=== PATIENT | male | born 1940 | race Caucasian/White ===

== ENCOUNTER 2018-03-22 15:42 | Inpatient (IN) | payer MEDICARE ==
[2018-03-22 15:42] VITALS: BMI 33.4
--- NOTE | 2018-03-22 17:14 | CT ---
PROCEDURE: CT HEAD WITHOUT CONTRAST. HISTORY: msc COMPARISON: None available. TECHNIQUE: Axial computed tomography images were obtained through the head/brain without intravenous contrast. Radiation dose: Total exam DLP = 765.8 mGy-cm. This CT exam was performed using one or more of the following dose reduction techniques: Automated exposure control, adjustment of the mA and/or kV according to patient size, and/or use of iterative reconstruction technique. FINDINGS: HEMORRHAGE: No intracranial hemorrhage. BRAIN: No mass effect or edema. Atrophy. Chronic microvascular ischemic changes. Bilateral basal ganglia lacunar infarctions. VENTRICLES: Unremarkable. No hydrocephalus. CALVARIUM: Unremarkable. PARANASAL SINUSES: Unremarkable as visualized. No significant inflammatory changes. MASTOID AIR CELLS: Unremarkable as visualized. No inflammatory changes. OTHER FINDINGS: None. IMPRESSION: No acute intracranial pathology.
[2018-03-22 17:21] LABS: BASO # 0.1 K/uL (0.0-0.2); EOS % 0.6 % (0.0-4.0); HEMOGLOBIN 16.9 g/dL (12.0-18.0); LYMPH # 1.6 K/uL (1.0-4.3); LYMPH % 19.7 % (20.0-40.0); MEAN CELL VOLUME 100.4 fL (80.0-94.0); MEAN CORPUSCULAR HEMOGLOBIN 33.6 pg (27.0-31.0); MEAN CORPUSCULAR HGB CONC 33.5 g/dL (33.0-37.0); MEAN PLATELET VOLUME 7.7 fL (7.2-11.7); MONO # 0.8 K/uL (0.0-0.8); MONO % 9.6 % (0.0-10.0); NEUT # 5.5 K/uL (1.8-7.0); NEUT % 69.1 % (50.0-75.0); NRBC % 0.1 % (0.0-2.0); RBC 5.02 Mil/uL (4.40-5.90); RED CELL DISTRIBUTION WIDTH 13.8 % (11.5-14.5)
[2018-03-22 17:40] LABS: ALB/GLOB RATIO 1.3 (1.0-2.1); ALBUMIN 4.7 g/dL (3.5-5.0); CALCIUM 9.4 mg/dl (8.6-10.4)
--- NOTE | 2018-03-22 17:44 | RAD ---
PROCEDURE: CHEST RADIOGRAPH, 1 VIEW HISTORY: SOB COMPARISON: Chest radiograph dated 03/01/2013. FINDINGS: LUNGS: Bibasilar atelectasis. PLEURA: No pneumothorax or pleural fluid seen. CARDIOVASCULAR: Atherosclerotic aortic calcifications. Cardiomediastinal silhouette the upper limits of normal in sizeNormal. OSSEOUS STRUCTURES: Degenerative changes. VISUALIZED UPPER ABDOMEN: Normal. OTHER FINDINGS: Small hiatal hernia. IMPRESSION: No active disease.
[2018-03-22 17:49] LABS: TROPONIN I 0.012 ng/mL (0.00-0.120)
--- NOTE | 2018-03-22 18:47 | C.PDOC ---
History Of Present Illness 77 year old male presents to the ER with family after he was found trying to enter a [place] he believed was his home. As per family, patient has been becoming more confused as of late and is nothing new. Family states patient refuses to see his doctor. Denies trauma, injuries, or complaints. Time Seen by Provider: 03/22/18 16:01 Chief Complaint (Nursing): Medical Clearance History Per: Patient History/Exam Limitations: no limitations Onset/Duration Of Symptoms: Days Current Symptoms Are (Timing): Still Present Recent travel outside of the [place]: No Past Medical History Reviewed: Historical Data, Nursing Documentation, Vital Signs Vital Signs: Last Vital Signs Temp 97.8 F 03/22/18 19:40 Pulse 74 03/22/18 19:40 Resp 16 03/22/18 19:40 BP 119/67 03/22/18 19:40 Pulse Ox 96 03/22/18 19:40 - Medical History PMH: Cardia Arrhythmia, COPD, Emphysema, HTN, Hypercholesterolemia, Sleep Apnea (HAS C-PAP DOESN'T USE) Surgical History: Coronary Stent (X2) - [employer] Procedures CORONARY ARTERIOGRAM NEC (05/15/15) LEFT HEART CARDIAC CATH (05/15/15) Family History: States: Unknown Family Hx - Social History Hx Tobacco Use: No Hx Alcohol Use: Yes Hx Substance Use: No - Immunization History Hx Tetanus Toxoid Vaccination: No Hx Influenza Vaccination: No Hx Pneumococcal Vaccination: No Review Of Systems Except As Marked, All Systems Reviewed And Found Negative. Neurological: Positive for: Confusion Physical Exam - Physical Exam Appears: Non-toxic Skin: Normal Color, Warm, Dry Head: Atraumatic, Normacephalic Eye(s): bilateral: Normal Inspection Oral Mucosa: Moist Neck: Normal, Supple Chest: Symmetrical, No Tenderness Cardiovascular: Rhythm Regular Respiratory: Normal Breath Sounds, No Rales, No Rhonchi, No Wheezing Gastrointestinal/Abdominal: Soft, No Tenderness Back: No CVA Tenderness Extremity: Normal ROM (x4) Neurological/Psych: Other (Awake, alert, oriented to time and place) ED Course And Treatment - Laboratory Results Result Diagrams: 03/22/18 17:16 03/22/18 17:16 ECG: Interpreted By Me, Viewed By Me ECG Rhythm: Sinus Rhythm ECG Interpretation: Normal Interpretation Of ECG: Atrial contractions, normal intervals and axis, no ST/T wave abnormalities. Rate From EC O2 Sat by Pulse Oximetry: 99 (Room air) Pulse Ox Interpretation: Normal Medical Decision Making Medical Decision Making: Plan: * CT Head * EKG * Blood work * CXR * Urinalysis Assessment: Dementia acute kidney injury case discussed with Dr. Ernandez and will admit to medical surgical floor. Disposition Discussed With .: Brain Ernandez Doctor Will See Patient In The: Hospital - Disposition Disposition: HOSPITALIZED Disposition Time: 20:30 Condition: FAIR Forms: [facility] (Yi) - Clinical Impression Clinical Impression: Confusion, Acute kidney injury - Scribe Statement The provider has reviewed the documentation as recorded by the Scribe Ronnie Manjarrez All medical record entries made by the Scribe were at my direction and personally dictated by me. I have reviewed the chart and agree that the record accurately reflects my personal performance of the history, physical exam, medical decision making, and the department course for this patient. I have also personally directed, reviewed, and agree with the discharge instructions and disposition.
[2018-03-22] MEDS ORDERED: ALLOPURINOL PO PRN (20:35)
[2018-03-22] MEDS: Sodium Chloride 0.45% 1,000 ML IV SCH (20:45)
[2018-03-22 23:09] LABS: SQUAMOUS EPITHIAL 3 /hpf (0-5); URINE BILIRUBIN NEGATIVE (NEGATIVE); URINE BLOOD 3+ (NEGATIVE); URINE CLARITY Hazy (Clear); URINE COLOR Amber (YELLOW); URINE GLUCOSE (UA) NORMAL (Normal); URINE HYALINE CAST >20 /lpf (0-2); URINE LEUKOCYTE ESTERASE NEG Leu/uL (Negative); URINE PROTEIN 2+ mg/dL (NEGATIVE)
[2018-03-22 23:15] LABS: URINE BACTERIA OCC (<OCC)
[2018-03-23 03:48] LABS: CK-MB 0.88 ng/mL (0.0-3.38)
[2018-03-23 07:53] LABS: BASO % 0.6 % (0.0-2.0); EOS # 0.1 K/uL (0.0-0.7); EOS % 1.7 % (0.0-4.0); LYMPH # 1.4 K/uL (1.0-4.3); LYMPH % 20.6 % (20.0-40.0); MEAN CELL VOLUME 99.3 fL (80.0-94.0); MEAN CORPUSCULAR HEMOGLOBIN 34.8 pg (27.0-31.0); MEAN PLATELET VOLUME 8.3 fL (7.2-11.7); MONO # 0.6 K/uL (0.0-0.8); MONO % 9.2 % (0.0-10.0); NEUT # 4.6 K/uL (1.8-7.0); NEUT % 67.9 % (50.0-75.0); RBC 4.3 Mil/uL (4.40-5.90); RED CELL DISTRIBUTION WIDTH 13.6 % (11.5-14.5); WHITE BLOOD COUNT 6.7 K/uL (4.8-10.8)
[2018-03-23 08:10] LABS: ALB/GLOB RATIO 1.3 (1.0-2.1); ALBUMIN 3.6 g/dL (3.5-5.0); ALT/SGPT 25 U/L (21-72); AST/SGOT 31 U/L (17-59); BLOOD UREA NITROGEN 27 mg/dL (9-20); CALCIUM 8.2 mg/dl (8.6-10.4); GFR AFRICAN-AMERICAN > 60; GFR NON-AFRICAN AMERICAN 59
[2018-03-23] MEDS ORDERED: PRAVASTATIN SODIUM 20 MG PO SCH (10:00)
[2018-03-23] MEDS ORDERED: Home Med 1 UNIT (Valsartan [Diovan] 1 TAB) PO SCH (10:00)
[2018-03-23] MEDS ORDERED: Home Med 1 UNIT (Aspirin [Aspirin] 81 MG) PO SCH (10:00)
[2018-03-23] MEDS ORDERED: ALLOPURINOL PO PRN (10:07)
[2018-03-23] MEDS: Sodium Chloride 0.45% 1,000 ML IV SCH ×2 (10:44→22:01)
--- NOTE | 2018-03-23 12:54 | CP.PCM.CON ---
History of Present Illness - History of Present Illness History of Present Illness: Neurology Consultation Note: Mr. Jalloh is a 77-year-old man with a past medical history of HTN, HLD, who has had two isolated events of confusion and getting lost for several hours, with subsequent return to baseline mental function. He was brought in yesterday after he attempted to enter a [employer], confusing it for his home. CT scan of the head was done an did not show any acute intracranial pathology. Review of Systems - Review of Systems All systems: reviewed and no additional remarkable complaints except Past Patient History - Past Medical History & Family History Past Medical History?: Yes - Past Social History Smoking Status: Former Smoker - CARDIAC Hx Cardiac Disorders: Yes Hx Cardia Arrhythmia: Yes Hx Hypercholesterolemia: Yes Hx Hypertension: Yes - PULMONARY Hx Respiratory Disorders: Yes Hx Chronic Obstructive Pulmonary Disease (COPD): Yes Hx Emphysema: Yes Hx Sleep Apnea: Yes (HAS C-PAP DOESN'T USE) - NEUROLOGICAL Hx Neurological Disorder: No - HEENT Hx HEENT Problems: Yes (READING GLASSES) - RENAL Hx Chronic Kidney Disease: No - ENDOCRINE/METABOLIC Hx Endocrine Disorders: No - HEMATOLOGICAL/ONCOLOGICAL Hx Blood Disorders: No - INTEGUMENTARY Hx Dermatological Problems: No - MUSCULOSKELETAL/RHEUMATOLOGICAL Hx Musculoskeletal Disorders: Yes Hx Falls: Yes - GASTROINTESTINAL Hx Gastrointestinal Disorders: No - GENITOURINARY/GYNECOLOGICAL Hx Genitourinary Disorders: No - PSYCHIATRIC Hx Psychophysiologic Disorder: No Hx Substance Use: No - SURGICAL HISTORY Hx Surgeries: Yes Hx Coronary Stent: Yes (X2) - ANESTHESIA Hx Anesthesia: Yes Hx Anesthesia Reactions: No Hx Malignant Hyperthermia: No Meds Allergies/Adverse Reactions: Allergies Allergy/AdvReac Type Severity Reaction Status Date / Time No Known Allergies Allergy Verified 03/22/18 16:00 - Medications Medications: Current Medications Amlodipine Besylate (Norvasc) 5 mg PO DAILY [facility] Last Admin: 03/23/18 10:44 Dose: 5 mg Aspirin (Aspirin Chewable) 81 mg PO DAILY [facility] Last Admin: 03/23/18 10:44 Dose: 81 mg Enoxaparin Sodium (Lovenox) 40 mg SC DAILY [facility] Sodium Chloride (Sodium Chloride 0.45%) 1,000 mls @ 80 mls/hr IV .[id number] [facility] Last Admin: 03/23/18 10:44 Dose: 80 mls/hr Losartan Potassium (Cozaar) 100 mg PO DAILY [facility] Rosuvastatin Calcium (Crestor) 2.5 mg PO HS OMAR Physical Exam - Neurological Exam Neurological exam: Alert, CN II-XII Intact, Normal Gait, Oriented x3, Reflexes Normal Additional comments: Able to recall 2/3 objects after a short delay, can spell WORLD frontward and backward, able to complete subtraction task to one level. Strength is symmetrical, sensation is intact, reflexes are normal, gait is normal, Romberg is negative. Results - Vital Signs Recent Vital Signs: Last Vital Signs Temp 98.0 F 03/23/18 07:36 Pulse 69 03/23/18 07:36 Resp 18 03/23/18 07:36 BP 131/71 03/23/18 07:36 Pulse Ox 97 03/23/18 07:36 - Labs Result Diagrams: 03/23/18 07:38 03/23/18 07:38 Labs: Laboratory Results - last 24 hr 03/22/18 03/22/18 03/22/18 16:43 17:16 17:16 WBC 8.0 RBC 5.02 Hgb 16.9 Hct 50.4 MCV 100.4 H MCH 33.6 H MCHC 33.5 RDW 13.8 Plt Count 290 MPV 7.7 Neut % (Auto) 69.1 Lymph % (Auto) 19.7 L [place] % (Auto) 9.6 Eos % (Auto) 0.6 Baso % (Auto) 1.0 Neut # (Auto) 5.5 Lymph # (Auto) 1.6 [place] # (Auto) 0.8 Eos # (Auto) 0.0 Baso # (Auto) 0.1 Sodium 150 H Potassium 3.9 Chloride 109 H Carbon Dioxide 22 Anion Gap 23 H BUN 30 H Creatinine 3.0 H Est GFR ( Amer) 25 Est GFR (Non-Af Amer) 20 Random Glucose 120 H Calcium 9.4 Magnesium 2.8 H Total Bilirubin 0.8 AST 40 ALT 12 L D Alkaline Phosphatase 147 H D Ammonia Total Creatine Kinase CK-MB (Mass) Troponin I 0.0120 NT-Pro-B Natriuret Pep 220 Total Protein 8.2 Albumin 4.7 Globulin 3.5 Albumin/Globulin Ratio 1.3 TSH 3rd Generation 1.68 Urine Color Lenora Urine Clarity Hazy Urine pH 5.0 Ur Specific [place] 1.021 Urine Protein 2+ H Urine Glucose (UA) Normal Urine Ketones Negative Urine Blood 3+ H Urine Nitrate Negative Urine Bilirubin Negative Urine Urobilinogen 2.0 Ur Leukocyte Esterase Neg Urine WBC (Auto) 5 Urine RBC (Auto) 274 H Ur Squamous Epith Cells 3 Urine Bacteria Occ H Hyaline Casts >20 H 03/22/18 03/23/18 03/23/18 19:15 03:13 07:38 WBC 6.7 RBC 4.30 L Hgb 15.0 Hct 42.7 MCV 99.3 H MCH 34.8 H MCHC 35.0 RDW 13.6 Plt Count 186 D MPV 8.3 Neut % (Auto) 67.9 Lymph % (Auto) 20.6 [place] % (Auto) 9.2 Eos % (Auto) 1.7 Baso % (Auto) 0.6 Neut # (Auto) 4.6 Lymph # (Auto) 1.4 [place] # (Auto) 0.6 Eos # (Auto) 0.1 Baso # (Auto) 0.0 Sodium Potassium Chloride Carbon Dioxide Anion Gap BUN Creatinine Est GFR ( Amer) Est GFR (Non-Af Amer) Random Glucose Calcium Magnesium Total Bilirubin AST ALT Alkaline Phosphatase Ammonia 39 H Total Creatine Kinase 61 CK-MB (Mass) 0.88 Troponin I < 0.0120 NT-Pro-B Natriuret Pep Total Protein Albumin Globulin Albumin/Globulin Ratio TSH 3rd Generation Urine Color Urine Clarity Urine pH Ur Specific [place] Urine Protein Urine Glucose (UA) Urine Ketones Urine Blood Urine Nitrate Urine Bilirubin Urine Urobilinogen Ur Leukocyte Esterase Urine WBC (Auto) Urine RBC (Auto) Ur Squamous Epith Cells Urine Bacteria Hyaline Casts 03/23/18 03/23/18 07:38 11:33 WBC RBC Hgb Hct MCV MCH MCHC RDW Plt Count MPV Neut % (Auto) Lymph % (Auto) [place] % (Auto) Eos % (Auto) Baso % (Auto) Neut # (Auto) Lymph # (Auto) [place] # (Auto) Eos # (Auto) Baso # (Auto) Sodium 140 Potassium 3.7 Chloride 105 Carbon Dioxide 25 Anion Gap 14 BUN 27 H Creatinine 1.2 Est GFR ( Amer) > 60 Est GFR (Non-Af Amer) 59 Random Glucose 86 Calcium 8.2 L Magnesium Total Bilirubin 0.9 AST 31 ALT 25 Alkaline Phosphatase 134 H Ammonia Total Creatine Kinase 65 CK-MB (Mass) 0.90 Troponin I < 0.0120 NT-Pro-B Natriuret Pep Total Protein 6.4 Albumin 3.6 Globulin 2.8 Albumin/Globulin Ratio 1.3 TSH 3rd Generation Urine Color Urine Clarity Urine pH Ur Specific [place] Urine Protein Urine Glucose (UA) Urine Ketones Urine Blood Urine Nitrate Urine Bilirubin Urine Urobilinogen Ur Leukocyte Esterase Urine WBC (Auto) Urine RBC (Auto) Ur Squamous Epith Cells Urine Bacteria Hyaline Casts Assessment & Plan (1) Confusion Assessment and Plan: The patient has had two such events, described by family as confusion, disorientation, etc. The patient has little recollection of these events. He may be having complex partial seizures and will need further work-up/ management. I recommend the followin. MRI of the brain with and without contrast 2. EEG awake and drowsy for 30 minutes 3. Start Keppra 500 mg BID 4. PT/OT eval Thank you. Status: Acute Priority: High
[2018-03-23] MEDS: Enoxaparin 40 mg Syringe SC SCH (13:19)
--- NOTE | 2018-03-23 14:57 | CP.PCM.HP ---
History of Present Illness - History of Present Illness History of Present Illness: COMPREHENSIVE HISTORY & PHYSICAL EXAM Patient is admitted from our emergency room with 2 episodes of confusion and disorientation. According to the family patient had 2 episodes of confusion disorientation transiently. Last evening patient was entering the [employer] and declared that he was entering the house. Patient currently has no neuro deficits and there is no evidence of any tonic-clonic seizures HPI History of hypertension no history of coronary artery disease [place] or diabetes or previous history of stroke. PAST HIST. PERSONAL HIST: Smoking. N Alcohol. N Allergy N Travel_- . FAMILY HIST : ROS : Constitutional: Negative for weight change, chills, night sweats, Eyes: Negative for redness, swelling, itching, discharge, vision changes, blurry vision, double vision, glaucoma, cataracts, Ears: Negative for hearing loss, ringing, , tinnitus, vertigo Nose: Negative for rhinorrhea, stuffiness, sniffing, itching, postnasal drip, discoloration, nasal congestion and epistaxis. Throat: Negative for throat clearing, sore throat, hoarseness, difficulty swallowing and difficulty speaking. Respiratory: Negative for cough, , sputum production, chest tightness, wheezing, pleuritic chest pain ,daytime somnolence, chronic cough, hemoptysis, snoring at night, Cardiovascular: Negative for chest pain, palpitations, orthopnea, PND, Edema of legs, leg cramps, angina, claudication, , irregular heartbeat, Neurology: Negative for irritability, muscle weakness, numbness and tingling, seizures, tremors, migraines, slurred speech, , recurrent headaches Gastrointestinal: Negative for difficulty swallowing, diarrhea, constipation, black stools, rectal bleeding, nausea, flatulence, reflux, poor appetite, changes in bowel habits, abdominal pain Genitourinary: Negative for frequent urination, hematuria, discharge, incontinence, urinary retention, frequent UTI, Psychiatric: Negative for depression, anxiety/panic, suicidal tendencies, Musculoskeletal: Negative for swollen joints, back pain, , neck pain, morning stiffness of joints, . Skin: Negative for rash, ulcers, itching, dry skin and pigmented lesions. P/E: Constitutional: Appears stated age and in no apparent distress. Head: Normocephalic. Ears: External ear canals patent without inflammation. Tympanic membranes intact with normal light reflex and landmark. Eyes: Pupils are central, bilaterally equal, symmetrical and reacts to light with normal movements and no icterus or pallor. Nose: External nares are patent. Mucosa is pink Mouth-Throat: Good general appearance and condition. No post-pharyngeal/oropharyngeal erythema and tonsillar hypertrophy. Good dental hygiene. Neck-Lymphatic: Neck is supple with normal ROM, no thyromegaly, lymph nodes or masses. JVD is normal with no carotid bruit. Lungs: Clear to percussion and auscultation with bilateral normal air entry. Cardiovascular: S1 and S2 are normal with no murmurs, gallops and rub. GI Exam: No hepatomegaly. Abdomen is soft and non-tender. No Organomegaly , masses or hernias are evident and bowel sounds are normal and active. Neurology: Higher function and all cranial nerves intact, with no gross motor or sensory deficit. Superficial and deep reflexes are normal with downwards planters. No cerebellar deficit with normal gait. Musculoskeletal: No tender spots with normal curvature of the spine with no swelling or restricted ROM of the small and large joints. Extremities: Homans sign absent. Intact pulses with no pitting edema, calf tenderness or skin color changes. Skin: No rash, eruptions or abnormal skin pigmentation LAB/RADIOLOGY: ASSESMENT : Transient episode of altered mental status without any neuro deficit. Will need a neuro workup for possible seizures. Will also need a workup for cardiac for cardiac arrhythmias. Hypertension stable PLAN: See the orders planned. Present on Admission - Present on Admission Any Indicators Present on Admission: No Past Patient History - Past Medical History & Family History Past Medical History?: Yes - Past Social History Smoking Status: Former Smoker - CARDIAC Hx Cardiac Disorders: Yes Hx Cardia Arrhythmia: Yes Hx Hypercholesterolemia: Yes Hx Hypertension: Yes - PULMONARY Hx Respiratory Disorders: Yes Hx Chronic Obstructive Pulmonary Disease (COPD): Yes Hx Emphysema: Yes Hx Sleep Apnea: Yes (HAS C-PAP DOESN'T USE) - NEUROLOGICAL Hx Neurological Disorder: No - HEENT Hx HEENT Problems: Yes (READING GLASSES) - RENAL Hx Chronic Kidney Disease: No - ENDOCRINE/METABOLIC Hx Endocrine Disorders: No - HEMATOLOGICAL/ONCOLOGICAL Hx Blood Disorders: No - INTEGUMENTARY Hx Dermatological Problems: No - MUSCULOSKELETAL/RHEUMATOLOGICAL Hx Musculoskeletal Disorders: Yes Hx Falls: Yes - GASTROINTESTINAL Hx Gastrointestinal Disorders: No - GENITOURINARY/GYNECOLOGICAL Hx Genitourinary Disorders: No - PSYCHIATRIC Hx Psychophysiologic Disorder: No Hx Substance Use: No - SURGICAL HISTORY Hx Surgeries: Yes Hx Coronary Stent: Yes (X2) - ANESTHESIA Hx Anesthesia: Yes Hx Anesthesia Reactions: No Hx Malignant Hyperthermia: No Meds Allergies/Adverse Reactions: Allergies Allergy/AdvReac Type Severity Reaction Status Date / Time No Known Allergies Allergy Verified 03/22/18 16:00 Results - Vital Signs Recent Vital Signs: Last Vital Signs Temp 98.0 F 03/23/18 07:36 Pulse 69 03/23/18 07:36 Resp 18 03/23/18 07:36 BP 131/71 03/23/18 07:36 Pulse Ox 97 03/23/18 07:36 - Labs Result Diagrams: 03/23/18 07:38 03/23/18 07:38 Labs: Laboratory Results - last 24 hr 03/22/18 03/22/18 03/22/18 16:43 17:16 17:16 WBC 8.0 RBC 5.02 Hgb 16.9 Hct 50.4 MCV 100.4 H MCH 33.6 H MCHC 33.5 RDW 13.8 Plt Count 290 MPV 7.7 Neut % (Auto) 69.1 Lymph % (Auto) 19.7 L [place] % (Auto) 9.6 Eos % (Auto) 0.6 Baso % (Auto) 1.0 Neut # (Auto) 5.5 Lymph # (Auto) 1.6 [place] # (Auto) 0.8 Eos # (Auto) 0.0 Baso # (Auto) 0.1 Sodium 150 H Potassium 3.9 Chloride 109 H Carbon Dioxide 22 Anion Gap 23 H BUN 30 H Creatinine 3.0 H Est GFR ( Amer) 25 Est GFR (Non-Af Amer) 20 Random Glucose 120 H Calcium 9.4 Magnesium 2.8 H Total Bilirubin 0.8 AST 40 ALT 12 L D Alkaline Phosphatase 147 H D Ammonia Total Creatine Kinase CK-MB (Mass) Troponin I 0.0120 NT-Pro-B Natriuret Pep 220 Total Protein 8.2 Albumin 4.7 Globulin 3.5 Albumin/Globulin Ratio 1.3 TSH 3rd Generation 1.68 Urine Color Lenora Urine Clarity Hazy Urine pH 5.0 Ur Specific [place] 1.021 Urine Protein 2+ H Urine Glucose (UA) Normal Urine Ketones Negative Urine Blood 3+ H Urine Nitrate Negative Urine Bilirubin Negative Urine Urobilinogen 2.0 Ur Leukocyte Esterase Neg Urine WBC (Auto) 5 Urine RBC (Auto) 274 H Ur Squamous Epith Cells 3 Urine Bacteria Occ H Hyaline Casts >20 H 03/22/18 03/23/18 03/23/18 19:15 03:13 07:38 WBC 6.7 RBC 4.30 L Hgb 15.0 Hct 42.7 MCV 99.3 H MCH 34.8 H MCHC 35.0 RDW 13.6 Plt Count 186 D MPV 8.3 Neut % (Auto) 67.9 Lymph % (Auto) 20.6 [place] % (Auto) 9.2 Eos % (Auto) 1.7 Baso % (Auto) 0.6 Neut # (Auto) 4.6 Lymph # (Auto) 1.4 [place] # (Auto) 0.6 Eos # (Auto) 0.1 Baso # (Auto) 0.0 Sodium Potassium Chloride Carbon Dioxide Anion Gap BUN Creatinine Est GFR ( Amer) Est GFR (Non-Af Amer) Random Glucose Calcium Magnesium Total Bilirubin AST ALT Alkaline Phosphatase Ammonia 39 H Total Creatine Kinase 61 CK-MB (Mass) 0.88 Troponin I < 0.0120 NT-Pro-B Natriuret Pep Total Protein Albumin Globulin Albumin/Globulin Ratio TSH 3rd Generation Urine Color Urine Clarity Urine pH Ur Specific [place] Urine Protein Urine Glucose (UA) Urine Ketones Urine Blood Urine Nitrate Urine Bilirubin Urine Urobilinogen Ur Leukocyte Esterase Urine WBC (Auto) Urine RBC (Auto) Ur Squamous Epith Cells Urine Bacteria Hyaline Casts 03/23/18 03/23/18 07:38 11:33 WBC RBC Hgb Hct MCV MCH MCHC RDW Plt Count MPV Neut % (Auto) Lymph % (Auto) [place] % (Auto) Eos % (Auto) Baso % (Auto) Neut # (Auto) Lymph # (Auto) [place] # (Auto) Eos # (Auto) Baso # (Auto) Sodium 140 Potassium 3.7 Chloride 105 Carbon Dioxide 25 Anion Gap 14 BUN 27 H Creatinine 1.2 Est GFR ( Amer) > 60 Est GFR (Non-Af Amer) 59 Random Glucose 86 Calcium 8.2 L Magnesium Total Bilirubin 0.9 AST 31 ALT 25 Alkaline Phosphatase 134 H Ammonia Total Creatine Kinase 65 CK-MB (Mass) 0.90 Troponin I < 0.0120 NT-Pro-B Natriuret Pep Total Protein 6.4 Albumin 3.6 Globulin 2.8 Albumin/Globulin Ratio 1.3 TSH 3rd Generation Urine Color Urine Clarity Urine pH Ur Specific [place] Urine Protein Urine Glucose (UA) Urine Ketones Urine Blood Urine Nitrate Urine Bilirubin Urine Urobilinogen Ur Leukocyte Esterase Urine WBC (Auto) Urine RBC (Auto) Ur Squamous Epith Cells Urine Bacteria Hyaline Casts
[2018-03-23 16:16] VITALS: RESP 20
[2018-03-23] MEDS: Rosuvastatin Calcium 2.5 mg Tab PO SCH (22:00)
[2018-03-24 07:38] LABS: BASO % 0.9 % (0.0-2.0); EOS # 0.1 K/uL (0.0-0.7); EOS % 1.8 % (0.0-4.0); HEMOGLOBIN 14.9 g/dL (12.0-18.0); LYMPH # 1.1 K/uL (1.0-4.3); LYMPH % 20.2 % (20.0-40.0); MEAN CELL VOLUME 98.9 fL (80.0-94.0); MEAN CORPUSCULAR HEMOGLOBIN 34.2 pg (27.0-31.0); MEAN CORPUSCULAR HGB CONC 34.6 g/dL (33.0-37.0); MEAN PLATELET VOLUME 8.1 fL (7.2-11.7); MONO # 0.5 K/uL (0.0-0.8); MONO % 8.9 % (0.0-10.0); NEUT # 3.7 K/uL (1.8-7.0); NEUT % 68.2 % (50.0-75.0); NRBC % 0.1 % (0.0-2.0); RBC 4.37 Mil/uL (4.40-5.90); RED CELL DISTRIBUTION WIDTH 13.3 % (11.5-14.5); WHITE BLOOD COUNT 5.4 K/uL (4.8-10.8)
[2018-03-24 08:12] LABS: ALB/GLOB RATIO 1.3 (1.0-2.1); ALBUMIN 3.4 g/dL (3.5-5.0); ALT/SGPT 24 U/L (21-72); AST/SGOT 26 U/L (17-59); BLOOD UREA NITROGEN 15 mg/dL (9-20); CALCIUM 8.5 mg/dl (8.6-10.4); GFR AFRICAN-AMERICAN > 60; GFR NON-AFRICAN AMERICAN > 60
[2018-03-24] MEDS: Enoxaparin 40 mg Syringe SC SCH (09:49)
[2018-03-24] MEDS: Sodium Chloride 0.45% 1,000 ML IV SCH ×2 (09:50→15:53)
--- NOTE | 2018-03-24 13:54 | CP.PCM.PN ---
Subjective - Date & Time of Evaluation Date of Evaluation: 03/24/18 Time of Evaluation: 13:52 - Subjective Subjective: CHIEF COMPLAINTS TODAY : patient is a periods of confusion and disorientation. ROS. HEENT : N. Resp : No cough, wheezing ,pleuritic CP ,or hemoptysis Cardio : No anginal CP, PND, orthopnea, palpitation GI : No abd.pain, n/v ,diarrhea or GI bleeding . [employer] : No headache, vertigo, focal deficit. Musculoskel : No joint swelling , Derm : No rash Psych : Normal affect. Ext : No swelling ,calf pain PE. Pt. is alert awake in no distress. V.S As noted in the chart Head ,ear nose,throat and eyes : Normal. Neck : Supple with normal carotids. Lungs: Clear air entry. Heart : S1 & S2 normal with S4.systolic ejection murmur in the aortic area 3 /6. Abd : Soft non tender with normal bowel sounds. Neuro : Moves all ext. with no localized deficit. Ext : No edema with intact pulses.Non tender calves Derm : No rashes or decubitus ulcer. LABS/RADIOLOGY: ASSESSMENT/PLAN : so far septic workup is negative. Neurocardiac workup is ongoing. Creatinine is now normalized. Objective - Vital Signs/Intake and Output Vital Signs (last 24 hours): Temp Pulse Resp BP Pulse Ox 98.2 F 72 20 144/80 97 03/24/18 09:53 03/24/18 09:53 03/24/18 09:53 03/24/18 09:53 03/24/18 09:53 Intake and Output: 03/24/18 03/24/18 11:59 23:59 Output Total 600 Balance -600 - Medications Medications: Current Medications Amlodipine Besylate (Norvasc) 5 mg PO DAILY [facility] Last Admin: 03/24/18 09:53 Dose: 5 mg Aspirin (Aspirin Chewable) 81 mg PO DAILY [facility] Last Admin: 03/24/18 09:49 Dose: 81 mg Enoxaparin Sodium (Lovenox) 40 mg SC DAILY [facility] Last Admin: 03/24/18 09:49 Dose: 40 mg Sodium Chloride (Sodium Chloride 0.45%) 1,000 mls @ 80 mls/hr IV .[id number] [facility] Last Admin: 03/24/18 09:50 Dose: Not Given Levetiracetam (Keppra) 500 mg PO BID [facility] Last Admin: 03/24/18 09:49 Dose: 500 mg Losartan Potassium (Cozaar) 100 mg PO DAILY [facility] Last Admin: 03/24/18 09:53 Dose: 100 mg Rosuvastatin Calcium (Crestor) 2.5 mg PO [facility] Last Admin: 03/23/18 22:00 Dose: 2.5 mg - Labs Labs: 03/24/18 07:00 03/24/18 07:00
--- NOTE | 2018-03-24 17:06 | VASCLAB ---
PROCEDURE: HISTORY: TIA COMPARISON: None available. TECHNIQUE: Grayscale and duplex Doppler evaluation of the cervical carotid and vertebral arteries were performed. The common carotid, carotid bifurcations and cervical Internal Carotid Artery (ICA) and proximal External Carotid Artery (ECA) were evaluated. The vertebral arteries were evaluated for gross patency and flow direction. Report prepared by ANA Hernandez FINDINGS: RIGHT CAROTID ARTERIES: 1. Common Carotid Artery: No significant focal plaque formation of the right common carotid artery. Maximum Peak Systolic velocity: 71 cm/sec: End-diastolic velocity 6 cm/sec. 2. Carotid Bifurcation: Calcific plaque formation. Maximum Peak Systolic velocity: 28 cm/sec: End-diastolic velocity 6 cm/sec. 3. Internal Carotid Artery: Plaque description: Calcific 3.1. Proximal Segment: Peak systolic velocity 57cm/sec: End-diastolic velocity 13 cm/sec - % stenosis 0-15% 3.2. Middle Segment: Peak systolic velocity 75 cm/sec: End-diastolic velocity 18 cm/sec - % stenosis 0-15% 3.3. Distal Segment: Peak systolic velocity 38 cm/sec: End-diastolic velocity 11 cm/sec - % stenosis 0-15% 4. External Carotid Artery: No significant focal plaque formation. Peak systolic velocity 73 cm/sec 5. ICA/CCA Ratio: 1.9 LEFT CAROTID ARTERIES: 1. Common Carotid Artery: No significant focal plaque formation of the left common carotid artery. Maximum Peak Systolic velocity: 87 cm/sec: End-diastolic velocity 14 cm/sec. 2. Carotid Bifurcation: Calcific plaque formation. Maximum Peak Systolic velocity: 48 cm/sec: End-diastolic velocity 0 cm/sec. 3. Internal Carotid Artery: Plaque description: Calcific 3.1. Proximal Segment: Peak systolic velocity 55 cm/sec: End-diastolic velocity 13 cm/sec - % stenosis 0-15% 3.2. Middle Segment: Peak systolic velocity 75 cm/sec: End-diastolic velocity 16 cm/sec - % stenosis 0-15% 3.3. Distal Segment: Peak systolic velocity 69 cm/sec: End-diastolic velocity 19 cm/sec - % stenosis 0-15% 4. External Carotid Artery: No significant focal plaque formation. Peak systolic velocity 78 cm/sec 5. ICA/CCA Ratio: 1.1 VERTEBRAL ARTERIES: 1. Right Vertebral Artery: The right vertebral artery flow direction is antegrade. 2. Left Vertebral Artery: The left vertebral artery flow direction is antegrade. OTHER FINDINGS: 1. Right Brachial Blood pressure: 140 mmHg. 2. Left Brachial Blood pressure: 145 mmHg. IMPRESSION: RIGHT: Duplex scan does not suggest hemodynamically significant stenosis of the right extracranial carotid arteries. LEFT: Duplex scan does not suggest hemodynamically significant stenosis of the left extracranial carotid arteries.
--- NOTE | 2018-03-24 17:33 | CP.PCM.PN ---
Subjective - Date & Time of Evaluation Date of Evaluation: 03/24/18 Time of Evaluation: 13:00 - Subjective Subjective: PGY-1 Neurology f/u for Dr. Ring's service Mr. Jalloh was seen and examined at bedside. No acute overnight events reported. Patient was alert, responded to questions appropriately. Has some isolated confusion as he does not recall the episode in [facility] that occurred yesterday. CT scan of the head was done an did not show any acute intracranial pathology. Objective - Vital Signs/Intake and Output Vital Signs (last 24 hours): Temp Pulse Resp BP Pulse Ox 98.5 F 86 20 154/88 H 98 03/24/18 15:46 03/24/18 15:46 03/24/18 15:46 03/24/18 15:46 03/24/18 15:46 Intake and Output: 03/24/18 03/24/18 06:59 18:59 Intake Total 730 Output Total 800 Balance -70 - Medications Medications: Current Medications Amlodipine Besylate (Norvasc) 5 mg PO DAILY [facility] Last Admin: 03/24/18 09:53 Dose: 5 mg Aspirin (Aspirin Chewable) 81 mg PO DAILY [facility] Last Admin: 03/24/18 09:49 Dose: 81 mg Enoxaparin Sodium (Lovenox) 40 mg SC DAILY [facility] Last Admin: 03/24/18 09:49 Dose: 40 mg Sodium Chloride (Sodium Chloride 0.45%) 1,000 mls @ 80 mls/hr IV .[id number] [facility] Last Admin: 03/24/18 15:53 Dose: 80 mls/hr Levetiracetam (Keppra) 500 mg PO BID [facility] Last Admin: 03/24/18 17:18 Dose: 500 mg Losartan Potassium (Cozaar) 100 mg PO DAILY [facility] Last Admin: 03/24/18 09:53 Dose: 100 mg Rosuvastatin Calcium (Crestor) 2.5 mg PO HS [facility] Last Admin: 03/23/18 22:00 Dose: 2.5 mg - Labs Labs: 03/24/18 07:00 03/24/18 07:00 - Constitutional Appears: Well, No Acute Distress, Confused - Head Exam Head Exam: NORMAL INSPECTION - Eye Exam Eye Exam: Normal appearance Pupil Exam: NORMAL ACCOMODATION - ENT Exam ENT Exam: Normal Exam - Neck Exam Neck Exam: Normal Inspection - Respiratory Exam Respiratory Exam: Clear to Ausculation Bilateral - Cardiovascular Exam Cardiovascular Exam: REGULAR RHYTHM, +S1, +S2 - Extremities Exam Extremities Exam: Normal Inspection - Neurological Exam Neurological Exam: Alert, Awake, CN II-XII Intact, Normal Gait, Oriented x3 - Skin Skin Exam: Intact, Normal Color Assessment and Plan - Assessment and Plan (Free Text) Assessment: 77 yo M, PMHx of HTN, HLD, who has had two isolated events of confusion and getting lost for several hours, with subsequent return to baseline mental function. He was brought in yesterday after he attempted to enter a [facility], confusing it for his home. CT scan of the head was done an did not show any acute intracranial pathology. Plan: 1. Confusion --EEG: No focal slowing no seizure like activity was observed --f/u MRI brain with and without contrast --continue w/ Keppra 500 mg PO BID
--- NOTE | 2018-03-24 21:02 | CARD ---
APPROVED REPORT EKG Measurement Heart [id number] UT [id number] [id number] <Conclusion> Sinus rhythm with premature atrial complexes Prolonged QT Abnormal ECG
[2018-03-24] MEDS: Rosuvastatin Calcium 2.5 mg Tab PO SCH (21:23)
--- NOTE | 2018-03-25 06:35 | CP.PCM.PN ---
Subjective - Date & Time of Evaluation Date of Evaluation: 03/25/18 Time of Evaluation: 06:31 - Subjective Subjective: Mr. Jalloh was seen and examined at the bedside. He is alert, oriented, but jokes around in answering questions. He verbalize of being in [place], however , he was able to state that EEG testing was done and MRI questionnaires were asked from his . He denies any headache, dizziness, lightheadedness, weakness. He is able to follow simple commands. He remains on telesitter for patient safety. There was no untoward events overnight. Objective - Vital Signs/Intake and Output Vital Signs (last 24 hours): Temp Pulse Resp BP Pulse Ox 99.6 F 72 20 143/63 100 03/25/18 00:00 03/25/18 00:00 03/25/18 00:00 03/25/18 00:00 03/25/18 00:00 Intake and Output: 03/24/18 03/25/18 18:59 06:59 Intake Total 200 Output Total 300 1100 Balance -300 -900 - Medications Medications: Current Medications Amlodipine Besylate (Norvasc) 5 mg PO DAILY [facility] Last Admin: 03/24/18 09:53 Dose: 5 mg Aspirin (Aspirin Chewable) 81 mg PO DAILY [facility] Last Admin: 03/24/18 09:49 Dose: 81 mg Enoxaparin Sodium (Lovenox) 40 mg SC DAILY [facility] Last Admin: 03/24/18 09:49 Dose: 40 mg Levetiracetam (Keppra) 500 mg PO BID [facility] Last Admin: 03/24/18 17:18 Dose: 500 mg Losartan Potassium (Cozaar) 100 mg PO DAILY [facility] Last Admin: 03/24/18 09:53 Dose: 100 mg Rosuvastatin Calcium (Crestor) 2.5 mg PO HS [facility] Last Admin: 03/24/18 21:23 Dose: 2.5 mg - Labs Labs: 03/24/18 07:00 03/24/18 07:00 - Constitutional Appears: No Acute Distress - Head Exam Head Exam: NORMAL INSPECTION - Eye Exam Pupil Exam: PERRL - Neurological Exam Neurological Exam: Alert, Awake Neuro motor strength exam: Left Upper Extremity: 5, Right Upper Extremity: 5, Left Lower Extremity: 5, Right Lower Extremity: 5 Additional comments: alert, able to answer questions, follow commands, sensation is intact. Assessment and Plan (1) Confusion Assessment & Plan: Case discussed with Dr. Ring, continue current medical regimen. Pending EEG results and MRI of the brain. Recommend physical and occupational therapies, encourage hydration, treat any electrolytes abnormalities. Status: Acute
[2018-03-25 08:31] LABS: BASO % 0.6 % (0.0-2.0); EOS # 0.1 K/uL (0.0-0.7); EOS % 1.2 % (0.0-4.0); HEMOGLOBIN 15.5 g/dL (12.0-18.0); LYMPH % 16.6 % (20.0-40.0); MEAN CORPUSCULAR HEMOGLOBIN 34.2 pg (27.0-31.0); MEAN CORPUSCULAR HGB CONC 34.9 g/dL (33.0-37.0); MEAN PLATELET VOLUME 8.1 fL (7.2-11.7); MONO # 0.6 K/uL (0.0-0.8); MONO % 9.8 % (0.0-10.0); NEUT # 4.5 K/uL (1.8-7.0); NEUT % 71.8 % (50.0-75.0); NRBC % 0.1 % (0.0-2.0); RBC 4.53 Mil/uL (4.40-5.90); RED CELL DISTRIBUTION WIDTH 13.2 % (11.5-14.5); WHITE BLOOD COUNT 6.2 K/uL (4.8-10.8)
[2018-03-25 08:36] LABS: ALB/GLOB RATIO 1.4 (1.0-2.1); ALBUMIN 3.8 g/dL (3.5-5.0); ALT/SGPT 29 U/L (21-72); AST/SGOT 28 U/L (17-59); BLOOD UREA NITROGEN 9 mg/dL (9-20); GFR AFRICAN-AMERICAN > 60; GFR NON-AFRICAN AMERICAN > 60
[2018-03-25] MEDS: Enoxaparin 40 mg Syringe SC SCH (09:38)
--- NOTE | 2018-03-25 13:57 | CP.PCM.PN ---
Subjective - Date & Time of Evaluation Date of Evaluation: 03/25/18 Time of Evaluation: 13:56 - Subjective Subjective: CHIEF COMPLAINTS TODAY : patient is a periods of confusion and disorientation. ROS. HEENT : N. Resp : No cough, wheezing ,pleuritic CP ,or hemoptysis Cardio : No anginal CP, PND, orthopnea, palpitation GI : No abd.pain, n/v ,diarrhea or GI bleeding . AGRICULTURAL ADVISER : No headache, vertigo, focal deficit. Musculoskel : No joint swelling , Derm : No rash Psych : Normal affect. Ext : No swelling ,calf pain PE. Pt. is alert awake in no distress. V.S As noted in the chart Head ,ear nose,throat and eyes : Normal. Neck : Supple with normal carotids. Lungs: Clear air entry. Heart : S1 & S2 normal with S4.systolic ejection murmur in the aortic area 3 /6. Abd : Soft non tender with normal bowel sounds. Neuro : Moves all ext. with no localized deficit. Ext : No edema with intact pulses.Non tender calves Derm : No rashes or decubitus ulcer. LABS/RADIOLOGY: carotid Dopplers is negative for any significant lesions in the carotid ASSESSMENT/PLAN : MRI and echo pending. EEG done report pending. Objective - Vital Signs/Intake and Output Vital Signs (last 24 hours): Temp Pulse Resp BP Pulse Ox 98.1 F 67 20 155/63 H 95 03/25/18 08:15 03/25/18 08:15 03/25/18 08:15 03/25/18 08:15 03/25/18 08:15 Intake and Output: 03/25/18 03/25/18 11:59 23:59 Output Total 600 Balance -600 - Medications Medications: Current Medications Amlodipine Besylate (Norvasc) 5 mg PO DAILY [facility] Last Admin: 03/25/18 09:38 Dose: 5 mg Aspirin (Aspirin Chewable) 81 mg PO DAILY [facility] Last Admin: 03/25/18 09:37 Dose: 81 mg Enoxaparin Sodium (Lovenox) 40 mg SC DAILY [facility] Last Admin: 03/25/18 09:38 Dose: 40 mg Levetiracetam (Keppra) 500 mg PO BID [facility] Last Admin: 03/25/18 09:38 Dose: 500 mg Losartan Potassium (Cozaar) 100 mg PO DAILY [facility] Last Admin: 03/25/18 09:38 Dose: 100 mg Rosuvastatin Calcium (Crestor) 2.5 mg PO [facility] Last Admin: 03/24/18 21:23 Dose: 2.5 mg - Labs Labs: 03/25/18 08:07 03/25/18 08:07
[2018-03-25] MEDS: Rosuvastatin Calcium 2.5 mg Tab PO SCH (21:01)
[2018-03-26] MEDS: Enoxaparin 40 mg Syringe SC SCH (09:36)
--- NOTE | 2018-03-26 09:55 | CARD ---
APPROVED REPORT EXAM: Two-dimensional and M-mode echocardiogram with Doppler and color Doppler. Other Information Quality : TDSRhythm : INDICATION Cardiac Disease: CAD COPD RISK FACTORS Hypertension 2D DIMENSIONS IVSd1.3 (0.7-1.1cm)LVDd4.7 (3.9-5.9cm) LVOT Diameter2.1 (1.8-2.4cm)PWd1.7 (0.7-1.1cm) LVDs2.7 (2.5-4.0cm)FS (%) 42.0 % LVEF (%)72.9 (>50%) M-Mode DIMENSIONS RVDd1.25 (2.1-3.2cm)Left Atrium (MM)3.24 (2.5-4.0cm) IVSd1.22 (0.7-1.1cm)Aortic Root2.79 (2.2-3.7cm) LVDd4.83 (4.0-5.6cm)Aortic Cusp Exc.1.22 (1.5-2.0cm) PWd1.07 (0.7-1.1cm)FS (%) 46 % LVDs2.62 (2.0-3.8cm)LVEF (%)77 (>50%) Aortic Valve AoV Peak Pwngmbrs814.3cm/sAoV VTI48.0cmAO Peak GR.20mmHg LVOT Peak Efnyllly601.5cm/sLVOT VTI24.78cmAO Mean GR.10mmHg LOCO (VMAX)1.96lm8JWF (VTI)1.37qm6SH P 1/2 Qrld387fu Mitral Valve MV E Hjazbgwt01.8cm/sMV A Iteyisdx13.8cm/sE/A ratio0.7 TDI E/Lateral E'0.0E/Medial E'0.0 Tricuspid Valve TR Peak Wlyiesgv446rd/sTR Peak Gr.23cvLdWENW03mdYv LEFT VENTRICLE There is borderline to mild concentric left ventricular hypertrophy. The left ventricular systolic function is normal. The left ventricular ejection fraction is within the normal range. There is normal LV segmental wall motion. Transmitral Doppler flow pattern is Grade I-abnormal relaxation pattern. RIGHT VENTRICLE The right ventricle is normal size. The right ventricular systolic function is normal. ATRIA The left atrium size is normal. The right atrium size is normal. AORTIC VALVE The aortic valve is calcified with mildly decreased systolic excursion. There is trace to mild aortic regurgitation. There is borderline to marginal calcific valvular aortic stenosis. Calculated aortic valve area is 1.8 cm2 MITRAL VALVE The mitral valve leaflets are normal. Mitral annular calcification is mild. There is no mitral valve regurgitation noted. TRICUSPID VALVE The tricuspid valve is normal in structure. There is mild tricuspid regurgitation. Right ventricular systolic pressure is estimated at less than 30 mmHg. PULMONIC VALVE The pulmonary valve is normal in structure. There is mild pulmonic valvular regurgitation. GREAT VESSELS The aortic root is normal in size. The aortic root displays mild to moderate sclerocalcific changes. The IVC is normal in size and collapses >50% with inspiration. PERICARDIAL EFFUSION There is a trace pericardial effusion. <Conclusion> There is borderline to mild concentric left ventricular hypertrophy. The left ventricular systolic function is normal. Transmitral Doppler flow pattern is Grade I-abnormal relaxation pattern. There is normal LV segmental wall motion. The right ventricular systolic function is normal. The aortic valve is calcified with mildly decreased systolic excursion. There is borderline to marginal calcific valvular aortic stenosis. Calculated aortic valve area is 1.8 cm2. There is trace to mild aortic regurgitation. The aortic root displays mild to moderate sclerocalcific changes. There is a trace pericardial effusion.
[2018-03-26] MEDS ORDERED: Gadodiamide 287 mg/ml 20 ml IV ONE (10:20)
--- NOTE | 2018-03-26 13:52 | MRI ---
PROCEDURE: MRI BRAIN WITH AND WITHOUT CONTRAST HISTORY: Complex partial seizure COMPARISON: None. TECHNIQUE: Multiplanar, multisequence MR images of the brain were obtained with and without intravenous contrast enhancement. FINDINGS: HEMORRHAGE: No acute parenchymal, subarachnoid or extra-axial hemorrhage. No evidence of hemosiderin deposition identified on gradient echo weighted sequence. DWI: No evidence of an acute or early subacute infarction seen on diffusion imaging. BRAIN PARENCHYMA: Mild chronic periventricular white matter ischemic changes seen extending peripherally into the deep white matter both cerebral hemispheres. Multiple more discrete chronic appearing lacunar type infarcts also noted scattered about the deep and subcortical white matter as well as both basal nuclei the latter of which are difficult to distinguish from dilated perivascular spaces. There may also be a few tiny dilated perivascular spaces within the brainstem versus tiny chronic lacunar type infarcts. Moderate generalized volume loss. ENHANCEMENT: No evidence of enhancing parenchymal nor extra-axial masses or collections. No evidence of unusual meningeal enhancement VENTRICLES: No obstructive hydrocephalus. CRANIUM: Unremarkable. ORBITS: Grossly unremarkable. PARANASAL SINUSES/MASTOIDS: Clear VASCULAR SYSTEM: Visualized major vascular flow voids at skull base patent OTHER FINDINGS: None . IMPRESSION: No evidence of acute intracranial hemorrhage or infarct. Mild chronic white matter ischemic changes. Additionally, there are dilated perivascular spaces seen both basal nuclei, difficult to distinguish between the tiny chronic lacunar type infarcts. Moderate generalized volume loss. No enhancing masses seen.
--- NOTE | 2018-03-26 14:11 | CP.PCM.PN ---
Subjective - Date & Time of Evaluation Date of Evaluation: 03/26/18 Time of Evaluation: 14:10 - Subjective Subjective: CHIEF COMPLAINTS TODAY : patient is a periods of confusion and disorientation. ROS. HEENT : N. Resp : No cough, wheezing ,pleuritic CP ,or hemoptysis Cardio : No anginal CP, PND, orthopnea, palpitation GI : No abd.pain, n/v ,diarrhea or GI bleeding . JANITOR SUPERVISOR : No headache, vertigo, focal deficit. Musculoskel : No joint swelling , Derm : No rash Psych : Normal affect. Ext : No swelling ,calf pain PE. Pt. is alert awake in no distress. V.S As noted in the chart Head ,ear nose,throat and eyes : Normal. Neck : Supple with normal carotids. Lungs: Clear air entry. Heart : S1 & S2 normal with S4.systolic ejection murmur in the aortic area 3 /6. Abd : Soft non tender with normal bowel sounds. Neuro : Moves all ext. with no localized deficit. Ext : No edema with intact pulses.Non tender calves Derm : No rashes or decubitus ulcer. LABS/RADIOLOGY: carotid Dopplers is negative for any significant lesions in the carotid ASSESSMENT/PLAN : echocardiogram shows normal left ventricular systolic function, with mild aortic stenosis valve area of 1.8 cm. MRI of the brain is negative for any acute changes. Continue present medications Objective - Vital Signs/Intake and Output Vital Signs (last 24 hours): Temp Pulse Resp BP Pulse Ox 98.8 F 72 20 110/64 97 03/26/18 05:30 03/26/18 00:00 03/26/18 00:00 03/26/18 00:00 03/26/18 00:00 Intake and Output: 03/26/18 03/26/18 11:59 23:59 Intake Total 300 Balance 300 - Medications Medications: Current Medications Amlodipine Besylate (Norvasc) 5 mg PO DAILY [facility] Last Admin: 03/26/18 09:36 Dose: 5 mg Aspirin (Aspirin Chewable) 81 mg PO DAILY [facility] Last Admin: 03/26/18 09:36 Dose: 81 mg Enoxaparin Sodium (Lovenox) 40 mg SC DAILY [facility] Last Admin: 03/26/18 09:36 Dose: 40 mg Levetiracetam (Keppra) 500 mg PO BID [facility] Last Admin: 03/26/18 09:36 Dose: 500 mg Losartan Potassium (Cozaar) 100 mg PO DAILY [facility] Last Admin: 03/26/18 09:36 Dose: 100 mg Rosuvastatin Calcium (Crestor) 2.5 mg PO [facility] Last Admin: 03/25/18 21:01 Dose: 2.5 mg - Labs Labs: 03/25/18 08:07 03/25/18 08:07
[2018-03-26 14:54] VITALS: BP 118/77; PULSE 77; TEMP 98.6; O2SAT 77
--- NOTE | 2018-03-26 17:22 | CP.PCM.PN ---
Subjective - Date & Time of Evaluation Date of Evaluation: 03/26/18 Time of Evaluation: 17:22 - Subjective Subjective: Alert, awake, not confused now, no acute distress. Objective - Vital Signs/Intake and Output Vital Signs (last 24 hours): Temp Pulse Resp BP Pulse Ox 98.6 F 77 20 118/77 77 L 03/26/18 10:00 03/26/18 10:00 03/26/18 10:00 03/26/18 10:00 03/26/18 10:00 Intake and Output: 03/26/18 03/26/18 06:59 18:59 Intake Total 300 Balance 300 - Medications Medications: Current Medications Amlodipine Besylate (Norvasc) 5 mg PO DAILY [facility] Last Admin: 03/26/18 09:36 Dose: 5 mg Aspirin (Aspirin Chewable) 81 mg PO DAILY [facility] Last Admin: 03/26/18 09:36 Dose: 81 mg Enoxaparin Sodium (Lovenox) 40 mg SC DAILY [facility] Last Admin: 03/26/18 09:36 Dose: 40 mg Levetiracetam (Keppra) 500 mg PO BID [facility] Last Admin: 03/26/18 09:36 Dose: 500 mg Losartan Potassium (Cozaar) 100 mg PO DAILY [facility] Last Admin: 03/26/18 09:36 Dose: 100 mg Rosuvastatin Calcium (Crestor) 2.5 mg PO HS [facility] Last Admin: 03/25/18 21:01 Dose: 2.5 mg - Labs Labs: 03/25/18 08:07 03/25/18 08:07 Assessment and Plan - Assessment and Plan (Free Text) Assessment: Patient admitted with confusion dehydration, seen and examined. Awake, no acute distress, mentally alert and follows commands. Discussed with DR Ernandez, plan to discharge home with family. Advised to follow up with the neurologyst in 1 week and continue with sierra. Also follow up with PMD in 1 week.
--- NOTE | 2018-03-28 13:01 | CP.PCM.DIS ---
Provider - Provider Date of Admission: 03/22/18 20:29 Attending physician: Brain Ernandez MD Time Spent in preparation of Discharge (in minutes): 353 Hospital Course - Lab Results Lab Results: Most Recent Lab Values WBC 6.2 K/uL (4.8-10.8) 03/25/18 08:07 RBC 4.53 Mil/uL (4.40-5.90) 03/25/18 08:07 Hgb 15.5 g/dL (12.0-18.0) 03/25/18 08:07 Hct 44.3 % (35.0-51.0) 03/25/18 08:07 MCV 98.0 fL (80.0-94.0) H 03/25/18 08:07 MCH 34.2 pg (27.0-31.0) H 03/25/18 08:07 MCHC 34.9 g/dL (33.0-37.0) 03/25/18 08:07 RDW 13.2 % (11.5-14.5) 03/25/18 08:07 Plt Count 186 K/uL (130-400) 03/25/18 08:07 MPV 8.1 fL (7.2-11.7) 03/25/18 08:07 Neut % (Auto) 71.8 % (50.0-75.0) 03/25/18 08:07 Lymph % (Auto) 16.6 % (20.0-40.0) L 03/25/18 08:07 Antelope % (Auto) 9.8 % (0.0-10.0) 03/25/18 08:07 Eos % (Auto) 1.2 % (0.0-4.0) 03/25/18 08:07 Baso % (Auto) 0.6 % (0.0-2.0) 03/25/18 08:07 Neut # (Auto) 4.5 K/uL (1.8-7.0) 03/25/18 08:07 Lymph # (Auto) 1.0 K/uL (1.0-4.3) 03/25/18 08:07 Antelope # (Auto) 0.6 K/uL (0.0-0.8) 03/25/18 08:07 Eos # (Auto) 0.1 K/uL (0.0-0.7) 03/25/18 08:07 Baso # (Auto) 0.0 K/uL (0.0-0.2) 03/25/18 08:07 Sodium 138 mmol/L (132-148) 03/25/18 08:07 Potassium 3.7 mmol/L (3.6-5.2) 03/25/18 08:07 Chloride 102 mmol/L (98-107) 03/25/18 08:07 Carbon Dioxide 27 mmol/L (22-30) 03/25/18 08:07 Anion Gap 13 (10-20) 03/25/18 08:07 BUN 9 mg/dL (9-20) 03/25/18 08:07 Creatinine 0.7 mg/dL (0.8-1.5) L 03/25/18 08:07 Est GFR ( Amer) > 60 03/25/18 08:07 Est GFR (Non-Af Amer) > 60 03/25/18 08:07 Random Glucose 94 mg/dL (75-110) 03/25/18 08:07 Calcium 9.0 mg/dl (8.6-10.4) 03/25/18 08:07 Magnesium 2.8 mg/dL (1.6-2.3) H 03/22/18 17:16 Total Bilirubin 1.1 mg/dL (0.2-1.3) 03/25/18 08:07 AST 28 U/L (17-59) 03/25/18 08:07 ALT 29 U/L (21-72) 03/25/18 08:07 Alkaline Phosphatase 122 U/L (38-126) 03/25/18 08:07 Ammonia 39 umol/L (9-33) H 03/22/18 19:15 Total Creatine Kinase 65 U/L (55-170) 03/23/18 11:33 CK-MB (Mass) 0.90 ng/mL (0.0-3.38) 03/23/18 11:33 Troponin I < 0.0120 ng/mL (0.00-0.120) 03/23/18 11:33 NT-Pro-B Natriuret Pep 220 pg/mL (0-900) 03/22/18 17:16 Total Protein 6.6 g/dL (6.3-8.3) 03/25/18 08:07 Albumin 3.8 g/dL (3.5-5.0) 03/25/18 08:07 Globulin 2.8 gm/dL (2.2-3.9) 03/25/18 08:07 Albumin/Globulin Ratio 1.4 (1.0-2.1) 03/25/18 08:07 TSH 3rd Generation 1.35 mIU/L (0.46-4.68) 03/24/18 07:00 Urine Color Lenora (YELLOW) 03/22/18 16:43 Urine Clarity Hazy (Clear) 03/22/18 16:43 Urine pH 5.0 (5.0-8.0) 03/22/18 16:43 Ur Specific Jber 1.021 (1.003-1.030) 03/22/18 16:43 Urine Protein 2+ mg/dL (NEGATIVE) H 03/22/18 16:43 Urine Glucose (UA) Normal mg/dL (Normal) 03/22/18 16:43 Urine Ketones Negative mg/dL (NEGATIVE) 03/22/18 16:43 Urine Blood 3+ (NEGATIVE) H 03/22/18 16:43 Urine Nitrate Negative (NEGATIVE) 03/22/18 16:43 Urine Bilirubin Negative (NEGATIVE) 03/22/18 16:43 Urine Urobilinogen 2.0 mg/dL (0.2-1.0) 03/22/18 16:43 Ur Leukocyte Esterase Neg Ameena/uL (Negative) 03/22/18 16:43 Urine WBC (Auto) 5 /hpf (0-5) 03/22/18 16:43 Urine RBC (Auto) 274 /hpf (0-3) H 03/22/18 16:43 Ur Squamous Epith Cells 3 /hpf (0-5) 03/22/18 16:43 Urine Bacteria Occ (<OCC) H 03/22/18 16:43 Hyaline Casts >20 /lpf (0-2) H 03/22/18 16:43 - Hospital Course Hospital Course: Patient is admitted from our emergency room with 2 episodes of confusion and disorientation. According to the family patient had 2 episodes of confusion disorientation transiently. Last evening patient was entering the [place] and declared that he was entering the house. Patient currently has no neuro deficits and there is no evidence of any tonic-clonic seizures HPI History of hypertension no history of coronary artery disease [place] or diabetes or previous history of stroke. patient had a cardio neuro workup Complete neurological workup CAT scan carotid ultrasound and MRI of the brain and EEG were normal Echocardiogram showed normal left ventricular systolic function with mild aortic stenosis with valve area of 1.8 cm Patient was anxious to go home and the family agreed that patient should be discha Patient will continue his home medication Discharge Exam - Head Exam Head Exam: NORMAL INSPECTION Discharge Plan - Discharge Medications Prescriptions: levETIRAcetam [Keppra] 500 mg PO BID #60 tab - Follow Up Plan Condition: FAIR Disposition: HOME/ ROUTINE Instructions: Acute Hemoptysis (DC), Hemoptysis (GEN)
== END 2018-03-26 17:47 | disposition home or self-care (01) | DRG 884 ==
LOC: C.ER 15:42 → C.9E 20:29 → C.5S 22:53 → C.3T 03-25 15:19
PROVIDERS: ADMIT Internal Medicine Cardiovascular Disease; ATTEND Internal Medicine Cardiovascular Disease
DX: R40.4 Transient alteration of awareness (principal); E86.0 Dehydration; R79.89 Other specified abnormal findings of blood chemistry; I10 Essential (primary) hypertension; I35.0 Nonrheumatic aortic (valve) stenosis; E78.5 Hyperlipidemia, unspecified; E78.00 Pure hypercholesterolemia, unspecified; G47.30 Sleep apnea, unspecified; J43.9 Emphysema, unspecified; Z87.891 Personal history of nicotine dependence; Z95.5 Presence of coronary angioplasty implant and graft

== ENCOUNTER 2018-04-26 22:36 | Emergency (ER) | payer MEDICARE ==
[2018-04-26 22:36] VITALS: BMI 33.4
[2018-04-26 22:47] VITALS: RESP 16; TEMP 98.2
--- NOTE | 2018-04-26 22:57 | C.PDOC ---
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 Patient remembers the event, denies LOC or other injuries. Time Seen by Provider: 04/26/18 22:56 Chief Complaint (Nursing): Abnormal Skin Integrity History Per: Patient History/Exam Limitations: no limitations Onset/Duration Of Symptoms: Hrs Current Symptoms Are (Timing): Still Present Suicide/Self Injury Attempted (Context): None Modifying Factor(s): Alcohol Severity: None Pain Scale Rating Of: 0 Associated Symptoms: denies: Depression, Suicidal Thoughts Involuntary Hold By: None Recent travel outside of the [place]: No Past Medical History Reviewed: Historical Data, Nursing Documentation, Vital Signs Vital Signs: Last Vital Signs Temp 98.2 F 04/26/18 22:45 Pulse 90 04/26/18 22:45 Resp 16 04/26/18 22:45 BP 104/67 04/26/18 22:45 Pulse Ox 94 L 04/26/18 23:10 - Medical History PMH: Cardia Arrhythmia, COPD, Emphysema, HTN, Hypercholesterolemia, Sleep Apnea (HAS C-PAP DOESN'T USE) Denies: Chronic Kidney Disease Surgical History: Coronary Stent (X2) - [facility] Procedures CORONARY ARTERIOGRAM NEC (05/15/15) LEFT HEART CARDIAC CATH (05/15/15) Family History: States: No Known Family Hx - Social History Hx Tobacco Use: No Hx Alcohol Use: Yes (Socially) Hx Substance Use: No - Immunization History Hx Tetanus Toxoid Vaccination: No Hx Influenza Vaccination: No Hx Pneumococcal Vaccination: No Review Of Systems Musculoskeletal: Negative for: Neck Pain Skin: Positive for: Other (Abrasion) Neurological: Negative for: Headache, Other (LOC) Physical Exam - Physical Exam Appears: Non-toxic Skin: Warm, Dry Head: Normacephalic, Abrasion (1cm superficial on center of chin, no active bleeding) Eye(s): bilateral: Normal Inspection Oral Mucosa: Moist Neck: Trachea Midline, No Midline Cervical Tenderness, No Paracervical Tenderness, Supple Chest: Symmetrical, No Tenderness Cardiovascular: Rhythm Regular Respiratory: No Rales, No Rhonchi, No Wheezing Gastrointestinal/Abdominal: Soft, No Tenderness Back: No Vertebral Tenderness, No Paraspinal Tenderness Neurological/Psych: Oriented x3 ED Course And Treatment O2 Sat by Pulse Oximetry: 94 (Room air) Pulse Ox Interpretation: Normal Progress Note: son came to pick the pt up. Pt is clinically sober Reevaluation Time: 00:55 Reassessment Condition: Improved Disposition Counseled Patient/Family Regarding: Studies Performed, Diagnosis, Need For Followup - Disposition Referrals: [facility] [Outside] [facility] [Outside] Disposition: HOME/ ROUTINE Disposition Time: 22:57 Condition: FAIR Additional Instructions: Please return if symptoms recur Instructions: Wound Care (DC), Skin Abrasions (DC) Forms: [employer] (Bruneian) - Clinical Impression Clinical Impression: Alcohol intoxication, Abrasion of chin - Scribe Statement The provider has reviewed the documentation as recorded by the Scribcaprice Manjarrez All medical record entries made by the Lavonibcaprice were at my direction and personally dictated by me. I have reviewed the chart and agree that the record accurately reflects my personal performance of the history, physical exam, medical decision making, and the department course for this patient. I have also personally directed, reviewed, and agree with the discharge instructions and disposition.
[2018-04-27 01:02] VITALS: BP 116/71; PULSE 80; O2SAT 95
== END 2018-04-27 01:05 | disposition home or self-care (01) ==
LOC: C.ER 22:36
DX: S00.81XA Abrasion of other part of head, initial encounter (principal); W01.0XXA Fall on same level from slipping, tripping and stumbling without subsequent striking against object, initial encounter; Y93.01 Activity, walking, marching and hiking; Y92.480 Sidewalk as the place of occurrence of the external cause; F10.129 Alcohol abuse with intoxication, unspecified

== ENCOUNTER 2018-08-22 11:32 | Emergency (ER) | payer MEDICARE ==
[2018-08-22 11:32] VITALS: BMI 33.4
--- NOTE | 2018-08-22 12:09 | C.PDOC ---
History Of Present Illness Patient complains of pain and swelling to left ankle after twisting injury 2 days ago at home. Patient states he did not take any analgesics or any care at home. He reports ankle progressively appears more swollen and is having difficulty ambulating because of pain. Denies other injury, numbness, weakness, calf pain, knee pain. Time Seen by Provider: 08/22/18 12:03 Chief Complaint (Nursing): Lower Extremity Problem/Injury History Per: Patient History/Exam Limitations: no limitations Onset/Duration Of Symptoms: Days Current Symptoms Are (Timing): Still Present Severity: Moderate - Ankle/Foot Description Of Injury: Twisted Past Medical History Reviewed: Historical Data, Nursing Documentation, Vital Signs Vital Signs: Last Vital Signs Temp 98.9 F 08/22/18 11:49 Pulse 84 08/22/18 11:49 Resp 18 08/22/18 11:49 BP 145/84 08/22/18 11:49 Pulse Ox 99 08/22/18 11:49 - Medical History PMH: Cardia Arrhythmia, COPD, Emphysema, HTN, Hypercholesterolemia, Sleep Apnea (HAS C-PAP DOESN'T USE) Surgical History: Coronary Stent (X2) - [facility] Procedures CORONARY ARTERIOGRAM NEC (05/15/15) LEFT HEART CARDIAC CATH (05/15/15) Family History: States: Unknown Family Hx - Social History Hx Tobacco Use: No Hx Alcohol Use: Yes (Socially) Hx Substance Use: No - Immunization History Hx Tetanus Toxoid Vaccination: No Hx Influenza Vaccination: No Hx Pneumococcal Vaccination: Yes (2018) Review Of Systems Except As Marked, All Systems Reviewed And Found Negative. Musculoskeletal: Positive for: Other (Ankle pain left) Physical Exam - Physical Exam Appears: Non-toxic, No Acute Distress Skin: Warm, Dry, Ecchymosis (left medial ankle) Head: Atraumatic, Normacephalic Eye(s): bilateral: Normal Inspection Chest: Symmetrical Extremity: Left: Other (moderate swelling to ankle with tenderness below lateral and medial malleolus, ecchymosis to medial ankle. Foot mildly swollen no focal tenderness, Toes nontender. ), Right: Atraumatic, Normal Color And Temperature, Normal ROM Neurological/Psych: Oriented x3, Normal Speech Gait: Unable To Assess ED Course And Treatment O2 Sat by Pulse Oximetry: 99 Medical Decision Making Medical Decision Making: Impression: Ankle injury Plan: * Xray left ankle * Motrin Progress: Xray viewed by me and shows no acute fracture or dislocation. Gabe bandage and aircast splint applied by CP. Physical therapist instructed on crutch training Disposition Counseled Patient/Family Regarding: Diagnosis, Need For Followup, Rx Given - Disposition Referrals: Barak Don MD [Staff Provider] - Disposition: HOME/ ROUTINE Disposition Time: 14:47 Condition: GOOD Additional Instructions: Your xray was normal, no fracture. Please apply ice to area 15 minutes three times a day. Take Motrin as needed for pain every 6 hours, with food to not upset stomach. Follow up with orthopedic if pain persists over one week. Tu radiografa era normal, sin fracturas. Por favor aplique hielo en el rosa maria 15 minutos jordan veces al da. [place] Motrin segn sea necesario para el dolor cada 6 horas, con alimentos para no alterar el estmago. Contine con la ortopedia si el dolor persiste kyrie mala semana. Prescriptions: Ibuprofen [Motrin] 600 mg PO Q8 #30 tab Instructions: Ankle Sprain (DC) Print Language: YI - POA Present On Arrival: None - Clinical Impression Clinical Impression: Ankle sprain
--- NOTE | 2018-08-22 14:50 | RAD ---
PROCEDURE: Left Ankle Radiographs. HISTORY: pain to left ankle s.p twisting injury 2days ago COMPARISON: None available. FINDINGS: BONES: Osseous demineralization limits evaluation for acute fracture lines. No acute displaced fracture. JOINTS: No dislocation. SOFT TISSUES: Vascular calcifications. Soft tissue swelling. No evidence of radiopaque foreign body. OTHER FINDINGS: None. IMPRESSION: Soft tissue swelling. No acute displaced fracture or dislocation identified. If symptoms persist or if there is clinical concern, x-ray follow-up in 7-10 days should be considered.
[2018-08-22 15:04] VITALS: BP 146/91; PULSE 79; RESP 20; TEMP 98.6; O2SAT 98
== END 2018-08-22 15:07 | disposition home or self-care (01) ==
LOC: C.ER 11:32
DX: S93.402A Sprain of unspecified ligament of left ankle, initial encounter (principal); X50.9XXA Other and unspecified overexertion or strenuous movements or postures, initial encounter; Y92.009 Unspecified place in unspecified non-institutional (private) residence as the place of occurrence of the external cause
CPT/HCPCS: 73610; 97116; 97161; 99285; G8978; G8979; G8980

== ENCOUNTER 2018-10-02 20:07 | Emergency (ER) | payer MEDICARE ==
[2018-10-02 20:08] VITALS: BMI 33.4
--- NOTE | 2018-10-02 20:44 | C.PDOC ---
History Of Present Illness 77 year old male with PMHx of alcohol abuse and confusion is brought to the ED by EMS for alcohol intoxication. Patient was picked up due to being grossly intoxicated. Patient was admitted on 04/08/18 for confusion, patient had negat tia workup done at that time. Patient's history limited due to acute intoxication. Patient states he wants to go home. Patient denies SI/HI, hallucinations, medical complaints. 03/2018 Complete neurological workup CAT scan carotid ultrasound and MRI of the brain and EEG were normal Echocardiogram showed normal left ventricular systolic function with mild aortic stenosis with valve area of 1.8 cm <ShakaNanette - Last Filed: 10/03/18 00:24> History Per: Patient, EMS History/Exam Limitations: intoxication Onset/Duration Of Symptoms: Hrs Current Symptoms Are (Timing): Still Present Associated Symptoms: denies: Depression, Suicidal Thoughts, Suicidal Plan Recent travel outside of the [place]: No Additional History Per: Patient, EMS <ShakaNanette - Last Filed: 10/03/18 00:24> <Gil Cohen - Last Filed: 10/03/18 06:16> Time Seen by Provider: 10/02/18 20:21 Chief Complaint (Nursing): Substance Abuse Past Medical History Reviewed: Historical Data, Nursing Documentation, Vital Signs Vital Signs: Last Vital Signs Temp 97.3 F L 10/02/18 20:13 Pulse 69 10/02/18 20:13 Resp 16 10/02/18 20:13 BP 137/79 10/02/18 20:13 Pulse Ox 96 10/02/18 20:13 - Medical History PMH: Cardia Arrhythmia, COPD, Emphysema, HTN, Hypercholesterolemia, Sleep Apnea (HAS C-PAP DOESN'T USE) Surgical History: Coronary Stent (X2) - [facility] Procedures CORONARY ARTERIOGRAM NEC (05/15/15) LEFT HEART CARDIAC CATH (05/15/15) Family History: States: Unknown Family Hx - Social History Hx Tobacco Use: No Hx Alcohol Use: Yes (Socially) Hx Substance Use: No - Immunization History Hx Tetanus Toxoid Vaccination: No Hx Influenza Vaccination: No Hx Pneumococcal Vaccination: Yes (2018) <ShakaNanette - Last Filed: 10/03/18 00:24> Vital Signs: Last Vital Signs Temp 97.3 F L 10/02/18 20:13 Pulse 72 10/02/18 22:41 Resp 17 10/03/18 03:47 BP 154/75 H 10/03/18 03:47 Pulse Ox 96 10/03/18 03:47 - [facility] Procedures CORONARY ARTERIOGRAM NEC (05/15/15) LEFT HEART CARDIAC CATH (05/15/15) <Gil Cohen Libra - Last Filed: 10/03/18 06:16> Review Of Systems Constitutional: Negative for: Fever, Chills Cardiovascular: Negative for: Chest Pain Respiratory: Negative for: Shortness of Breath Gastrointestinal: Negative for: Nausea, Vomiting, Abdominal Pain Neurological: Negative for: Weakness, Numbness Psych: Negative for: Depression, Suicidal ideation <Nanette Matt - Last Filed: 10/03/18 00:24> Physical Exam - Physical Exam Appears: Non-toxic, Other (intoxicated) Skin: Normal Color, Warm, Dry Head: Atraumatic, Normacephalic, No Laceration Eye(s): bilateral: Normal Inspection, PERRL, EOMI Oral Mucosa: Moist Neck: Normal ROM, Supple Chest: Symmetrical Cardiovascular: Rhythm Regular Respiratory: Normal Breath Sounds, No Rales, No Rhonchi, No Wheezing Gastrointestinal/Abdominal: Soft, No Tenderness, No Guarding, No Rebound Extremity: Bilateral: Atraumatic, Normal Color And Temperature, Normal ROM Neurological/Psych: No Oriented x3 (AOx2), Other (acute intoxication) <Nanette Matt Last Filed: 10/03/18 00:24> ED Course And Treatment O2 Sat by Pulse Oximetry: 96 (ON RA) Pulse Ox Interpretation: Normal <Nanette Matt Last Filed: 10/03/18 00:24> - Laboratory Results Result Diagrams: 10/03/18 01:18 10/03/18 01:18 Lab Results: Total Bilirubin 0.5 mg/dL (0.2-1.3) 10/03/18 01:18 AST 21 U/L (17-59) 10/03/18 01:18 ALT 21 U/L (21-72) D 10/03/18 01:18 Alkaline Phosphatase 73 U/L (38-126) 10/03/18 01:18 Total Protein 6.8 g/dL (6.3-8.3) 10/03/18 01:18 Albumin 4.0 g/dL (3.5-5.0) 10/03/18 01:18 Globulin 2.9 gm/dL (2.2-3.9) 10/03/18 01:18 Albumin/Globulin Ratio 1.4 (1.0-2.1) 10/03/18 01:18 Urine Color Straw (YELLOW) 10/03/18 01:18 Urine Clarity Clear (Clear) 10/03/18 01:18 Urine pH 6.0 (5.0-8.0) 10/03/18 01:18 Ur Specific Dexter 1.003 (1.003-1.030) 10/03/18 01:18 Urine Protein Negative mg/dL (NEGATIVE) 10/03/18 01:18 Urine Glucose (UA) Normal mg/dL (Normal) 10/03/18 01:18 Urine Ketones Negative mg/dL (NEGATIVE) 10/03/18 01:18 Urine Blood Negative (NEGATIVE) 10/03/18 01:18 Urine Nitrate Negative (NEGATIVE) 10/03/18 01:18 Urine Bilirubin Negative (NEGATIVE) 10/03/18 01:18 Urine Urobilinogen Normal mg/dL (0.2-1.0) 10/03/18 01:18 Ur Leukocyte Esterase Neg Ameena/uL (Negative) 10/03/18 01:18 Urine WBC (Auto) 1 /hpf (0-5) 10/03/18 01:18 Urine RBC (Auto) < 1 /hpf (0-3) 10/03/18 01:18 <Gil Cohen R - Last Filed: 10/03/18 06:16> Progress - Re-Evaluation Re-evaluation Note: 10/02/18 21:22 PT INCREASINGLY COMBATIVE, UNCOOPERATIVE W RN AND SECURITY. CLIMBING OUT OF STRETCHER, TRYING TO HIT STAFF AND MAKING CONTINUED THREATS "TO PUNCH YOU IN THE FACE" PER FINANCIAL DATA ANALYST, FAMILY STATES UNABLE TO GET PATIENT "BC THEY LIVE TOO FAR" REFUSING TO TAKE PATIENT HOME. D/W PT CLEMENTINA GARCIA [phone]: ADVISED PT STATUS AND ER MGMT PLAN. STATES PT DRINKS DAILY, IS BASELINE CONFUSED AND BECOMES AGITATED WHEN DRUNK. STATES UNABLE TO TAKE CARE OF PT @ HOME IN HIS CURRENT STATE AND UNABLE TO GET PT DUE TO HER POST-OP CONDITION. 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 PT D/W ON CELL PHONE 01/13/19 23:19 sleeping nard vss. - Data Reviewed Data Reviewed: Old records <Nanette Matt - Last Filed: 10/03/18 00:24> Disposition Counseled Patient/Family Regarding: Diagnosis - Disposition Disposition Time: 00:24 <Nanette Matt - Last Filed: 10/03/18 00:24> - Disposition Disposition Time: 06:16 <Gil Cohen - Last Filed: 10/03/18 06:16> - Disposition Referrals: [facility] [Outside] Disposition: HOME/ ROUTINE Condition: STABLE Instructions: Alcohol Abuse and Alcoholism (DC) Forms: [employer] (Turkish) - Clinical Impression Clinical Impression: Alcohol intoxication, Agitation - Scribe Statement The provider has reviewed the documentation as recorded by the Scribe Marco Puente All medical record entries made by the Scribe were at my direction and personally dictated by me. I have reviewed the chart and agree that the record accurately reflects my personal performance of the history, physical exam, medical decision making, and the department course for this patient. I have also personally directed, reviewed, and agree with the discharge instructions and disposition. <Nanette Matt - Last Filed: 10/03/18 00:24> Physician Patient Turnover Patient Signed Over To: Gil Cohen Handoff Comments: Pending sobriety, and dispo <ShakaNanette - Last Filed: 10/03/18 00:24>
[2018-10-03 01:24] LABS: BASO % 0.9 % (0.0-2.0); EOS % 0.3 % (0.0-4.0); HEMOGLOBIN 15.6 g/dL (12.0-18.0); LYMPH # 1.3 K/uL (1.0-4.3); LYMPH % 24.3 % (20.0-40.0); MEAN CELL VOLUME 99.5 fL (80.0-94.0); MEAN CORPUSCULAR HEMOGLOBIN 33.1 pg (27.0-31.0); MEAN CORPUSCULAR HGB CONC 33.3 g/dL (33.0-37.0); MEAN PLATELET VOLUME 7.6 fL (7.2-11.7); MONO # 0.5 K/uL (0.0-0.8); MONO % 9.2 % (0.0-10.0); NEUT # 3.6 K/uL (1.8-7.0); NEUT % 65.3 % (50.0-75.0); RBC 4.7 Mil/uL (4.40-5.90); WHITE BLOOD COUNT 5.4 K/uL (4.8-10.8)
[2018-10-03 01:26] LABS: URINE BILIRUBIN NEGATIVE (NEGATIVE); URINE BLOOD NEGATIVE (NEGATIVE); URINE CLARITY Clear (Clear); URINE COLOR Straw (YELLOW); URINE GLUCOSE (UA) NORMAL (Normal); URINE LEUKOCYTE ESTERASE NEG Leu/uL (Negative); URINE PROTEIN NEGATIVE (NEGATIVE); URINE UROBILINOGEN NORMAL mg/dL (0.2-1.0)
[2018-10-03 01:36] LABS: ALB/GLOB RATIO 1.4 (1.0-2.1); BLOOD UREA NITROGEN 11 mg/dL (9-20); CALCIUM 8.6 mg/dl (8.6-10.4); GFR NON-AFRICAN AMERICAN > 60
[2018-10-03 01:39] LABS: BARBITURATES, UR NEGATIVE (NEGATIVE); BENZODIAZEPINES, UR NEGATIVE (NEGATIVE); OPIATES, UR NEGATIVE (NEGATIVE); PHENCYCLIDINE, UR NEGATIVE (NEGATIVE)
[2018-10-03 01:52] LABS: ALT/SGPT 21 U/L (21-72); AST/SGOT 21 U/L (17-59)
[2018-10-03 09:06] VITALS: BP 184/92; PULSE 84; RESP 20; TEMP 97.5; O2SAT 99
== END 2018-10-03 08:47 | disposition home or self-care (01) ==
LOC: C.ER 20:07
DX: F10.129 Alcohol abuse with intoxication, unspecified (principal); Y90.6 Blood alcohol level of 120-199 mg/100 ml; R45.1 Restlessness and agitation; I10 Essential (primary) hypertension; E78.00 Pure hypercholesterolemia, unspecified; Z95.5 Presence of coronary angioplasty implant and graft; Z87.891 Personal history of nicotine dependence
CPT/HCPCS: 80053; 81001; 82948; 83735; 84100; 85025; 96372; 99285; G0480; J3486

== ENCOUNTER 2018-10-30 16:35 | Emergency (ER) | payer MEDICARE ==
[2018-10-30 16:36] VITALS: BMI 33.4
[2018-10-30 17:02] VITALS: BP 114/61; PULSE 69; TEMP 97.9; O2SAT 93
--- NOTE | 2018-10-30 17:10 | C.PDOC ---
History Of Present Illness 77 year old male presents to the ED BIBA for an evaluation status post fall. Reports he tripped and fell on the street. Reports he feels fine. Denies any LOC, head injury, weakness, numbness, dizziness, headache, nausea, or vomiting. Denies any further evaluation. - HPI Time Seen by Provider: 10/30/18 16:55 Chief Complaint (Nursing): Syncope History Per: Patient, EMS History/Exam Limitations: no limitations Onset/Duration Of Symptoms: Mins Injury Occurred (Timing): Just Before Arrival - Fall Fall:Prior To Injury: Tripped Past Medical History Reviewed: Historical Data, Nursing Documentation, Vital Signs Vital Signs: Last Vital Signs Temp 97.9 F 10/30/18 16:40 Pulse 69 10/30/18 16:40 Resp 21 10/30/18 16:40 BP 114/61 10/30/18 16:40 Pulse Ox 93 L 10/30/18 16:40 - Medical History PMH: Cardia Arrhythmia, COPD, Emphysema, HTN, Hypercholesterolemia, Sleep Apnea (HAS C-PAP DOESN'T USE) Surgical History: Coronary Stent (X2) - [facility] Procedures CORONARY ARTERIOGRAM NEC (05/15/15) LEFT HEART CARDIAC CATH (05/15/15) Family History: States: No Known Family Hx - Social History Hx Tobacco Use: No Hx Alcohol Use: Yes (Socially) Hx Substance Use: No - Immunization History Hx Tetanus Toxoid Vaccination: No Hx Influenza Vaccination: No Hx Pneumococcal Vaccination: Yes (2018) Review Of Systems Except As Marked, All Systems Reviewed And Found Negative. Gastrointestinal: Negative for: Nausea, Vomiting Neurological: Negative for: Weakness, Numbness, Headache, Dizziness, Other (LOC) Physical Exam - Physical Exam Appears: Non-toxic, No Acute Distress Skin: Warm, Dry Head: Atraumatic, Normacephalic Eye(s): bilateral: Normal Inspection, PERRL, EOMI Nose: Normal Oral Mucosa: Moist Neck: Supple Chest: Symmetrical Cardiovascular: Rhythm Regular Respiratory: No Decreased Breath Sounds, Other (NARD) Extremity: Normal ROM Neurological/Psych: Oriented x3, Normal Speech, Other (no acute intoxication) Gait: Steady ED Course And Treatment O2 Sat by Pulse Oximetry: 93 (RA) Pulse Ox Interpretation: Abnormal Disposition Counseled Patient/Family Regarding: Studies Performed, Diagnosis - Disposition Referrals: YOUR,PMD [Other] Disposition: HOME/ ROUTINE Disposition Time: :09 Condition: GOOD Instructions: Contusion (DC) Forms: [employer] (Colombian) - Clinical Impression Clinical Impression: Contusion - Scribe Statement The provider has reviewed the documentation as recorded by the Scribe Ingrid Adams All medical record entries made by the Scribe were at my direction and personally dictated by me. I have reviewed the chart and agree that the record accurately reflects my personal performance of the history, physical exam, medical decision making, and the department course for this patient. I have also personally directed, reviewed, and agree with the discharge instructions and disposition.
[2018-10-30 17:14] VITALS: RESP 16
== END 2018-10-30 17:13 | disposition home or self-care (01) ==
LOC: C.ER 16:35
DX: T14.8XXA Other injury of unspecified body region, initial encounter (principal); W01.0XXA Fall on same level from slipping, tripping and stumbling without subsequent striking against object, initial encounter; Y92.410 Unspecified street and highway as the place of occurrence of the external cause; E78.00 Pure hypercholesterolemia, unspecified; I10 Essential (primary) hypertension

== ENCOUNTER 2018-10-30 18:17 | Emergency (ER) | payer MEDICARE ==
[2018-10-30 18:17] VITALS: BMI 33.4
[2018-10-30 18:40] VITALS: BP 133/76; PULSE 67; RESP 18; TEMP 97.5; O2SAT 96
[2018-10-30] MEDS ORDERED: Tdap Vaccine 0.5 ml Vial (10-64 yrs) IM ONE (19:12)
--- NOTE | 2018-10-30 19:18 | C.PDOC ---
History Of Present Illness 77 y/o M c PMHx dementia, alcohol use p/w confusion. Patient was in this ED earlier today, discharged, brought in about 1 hour later by meters superintendent's office having found patient on floor with abrasions. Patient uncooperative. Full HPI/RO S unobtainable. Time Seen by Provider: 10/30/18 18:52 Chief Complaint (Nursing): Altered Mental Status Past Medical History Vital Signs: Last Vital Signs Temp 97.5 F L 10/30/18 18:37 Pulse 67 10/30/18 18:37 Resp 18 10/30/18 18:37 BP 133/76 10/30/18 18:37 Pulse Ox 96 10/30/18 18:37 - Medical History PMH: Cardia Arrhythmia, COPD, Emphysema, HTN, Hypercholesterolemia, Sleep Apnea (HAS C-PAP DOESN'T USE) Surgical History: Coronary Stent (X2) - [facility] Procedures CORONARY ARTERIOGRAM NEC (05/15/15) LEFT HEART CARDIAC CATH (05/15/15) Family History: States: Unknown Family Hx - Social History Hx Tobacco Use: No Hx Alcohol Use: Yes (Socially) Hx Substance Use: No - Immunization History Hx Tetanus Toxoid Vaccination: No Hx Influenza Vaccination: No Hx Pneumococcal Vaccination: Yes (2018) Review Of Systems Review Of Systems: ROS cannot be obtained secondary to pt's inabilty to answer questions. Physical Exam - Physical Exam Additional Physical Exam Comments: Abrasion to L knee, abrasion to R elbow. ED Course And Treatment - Laboratory Results Result Diagrams: 10/30/18 19:27 10/30/18 19:27 O2 Sat by Pulse Oximetry: 96 Medical Decision Making Medical Decision Making: called, states she can not pick patient up. Friends arrived because called them. They state this is patient's typical presentation when he has drunk alcohol and feel comfortable to take him home. Instructed to bring patient back for any change in behavior, lethargy, vomiting, seizure, or any other problem. Disposition - Disposition Referrals: FAMILY PROVIDER,NO [Primary Care Provider] - Disposition: HOME/ ROUTINE Disposition Time: 19:40 Condition: STABLE Instructions: Dementia (DC) Forms: [employer] (Romanian) - Clinical Impression Clinical Impression: Abrasion
[2018-10-30 19:32] LABS: BASO # 0.1 K/uL (0.0-0.2); BASO % 1.3 % (0.0-2.0); EOS % 0.4 % (0.0-4.0); HEMOGLOBIN 15.8 g/dL (12.0-18.0); LYMPH # 1.4 K/uL (1.0-4.3); LYMPH % 21.2 % (20.0-40.0); MEAN CELL VOLUME 99.1 fL (80.0-94.0); MEAN CORPUSCULAR HEMOGLOBIN 33.3 pg (27.0-31.0); MEAN CORPUSCULAR HGB CONC 33.6 g/dL (33.0-37.0); MEAN PLATELET VOLUME 7.7 fL (7.2-11.7); MONO # 0.5 K/uL (0.0-0.8); MONO % 8.1 % (0.0-10.0); NEUT # 4.6 K/uL (1.8-7.0); RBC 4.76 Mil/uL (4.40-5.90); RED CELL DISTRIBUTION WIDTH 14.2 % (11.5-14.5); WHITE BLOOD COUNT 6.6 K/uL (4.8-10.8)
[2018-10-30] MEDS ORDERED: Tetanus/Diphtheria Toxoids 0.5 ml Syringe IM ONE (19:32)
[2018-10-30 19:37] LABS: URINE BILIRUBIN NEGATIVE (NEGATIVE); URINE BLOOD NEGATIVE (NEGATIVE); URINE CLARITY Clear (Clear); URINE COLOR Colorless (YELLOW); URINE GLUCOSE (UA) NORMAL (Normal); URINE LEUKOCYTE ESTERASE NEG Leu/uL (Negative); URINE PROTEIN NEGATIVE (NEGATIVE); URINE UROBILINOGEN NORMAL mg/dL (0.2-1.0)
[2018-10-30 19:47] LABS: BARBITURATES, UR NEGATIVE (NEGATIVE); BENZODIAZEPINES, UR NEGATIVE (NEGATIVE); OPIATES, UR NEGATIVE (NEGATIVE); PHENCYCLIDINE, UR NEGATIVE (NEGATIVE)
[2018-10-30 19:48] LABS: ALB/GLOB RATIO 1.6 (1.0-2.1); ALBUMIN 4.4 g/dL (3.5-5.0); ALT/SGPT 11 U/L (21-72); AST/SGOT 26 U/L (17-59); BLOOD UREA NITROGEN 13 mg/dL (9-20); CALCIUM 8.8 mg/dl (8.6-10.4); GFR NON-AFRICAN AMERICAN > 60
== END 2018-10-30 19:42 | disposition home or self-care (01) ==
LOC: SUPCPDRO 18:17 → C.ER 18:17
DX: S80.212A Abrasion, left knee, initial encounter (principal); S50.311A Abrasion of right elbow, initial encounter; X58.XXXA Exposure to other specified factors, initial encounter; Y92.89 Other specified places as the place of occurrence of the external cause; E78.00 Pure hypercholesterolemia, unspecified; I10 Essential (primary) hypertension; Z23 Encounter for immunization
CPT/HCPCS: 80053; 81001; 82550; 82948; 85025; 87086; 90471; 90715; 96372; 99285; G0480; J1630

== ENCOUNTER 2018-11-20 16:57 | Emergency (ER) | payer MEDICARE ==
[2018-11-20 16:57] VITALS: BMI 33.4
--- NOTE | 2018-11-20 17:39 | C.PDOC ---
History Of Present Illness 78 year old male presents to ED for evaluation s/p falling in the lobby of his apartment. Patient has a PMHx of hypertension, hyperlipidemia, and substance abuse. Patient was seen previously for similar complaint. Patient denies any physical complaints. in er asking for discharge immediately. ambulating in nad. clinically sober. denies any complaints states "i dont' know why they brought me here" orinted x 3 Patient denies headache and dizziness. - HPI Time Seen by Provider: 11/20/18 17:07 Chief Complaint (Nursing): Trauma History Per: Patient History/Exam Limitations: no limitations Onset/Duration Of Symptoms: Hrs Severity: None - Fall Fall:Prior To Injury: Tripped Past Medical History Reviewed: Historical Data, Nursing Documentation, Vital Signs - Medical History PMH: Cardia Arrhythmia, COPD, Emphysema, HTN, Hypercholesterolemia, Sleep Apnea (HAS C-PAP DOESN'T USE) Surgical History: Coronary Stent (X2) - [facility] Procedures CORONARY ARTERIOGRAM NEC (05/15/15) LEFT HEART CARDIAC CATH (05/15/15) Family History: States: Unknown Family Hx - Social History Hx Tobacco Use: No Hx Alcohol Use: Yes (Socially) Hx Substance Use: No - Immunization History Hx Tetanus Toxoid Vaccination: No Hx Influenza Vaccination: Yes Hx Pneumococcal Vaccination: Yes (2018) Review Of Systems Constitutional: Negative for: Fever, Chills, Weakness Cardiovascular: Negative for: Chest Pain, Light Headedness Respiratory: Negative for: Shortness of Breath Musculoskeletal: Negative for: Back Pain Neurological: Negative for: Weakness, Numbness, Headache, Dizziness Physical Exam - Physical Exam Appears: Well, No Acute Distress Skin: Normal Color, Warm, Dry Head: Atraumatic, Normacephalic Neck: Normal ROM, Supple Chest: Symmetrical, No Deformity Cardiovascular: Rhythm Regular, No Murmur Respiratory: No Accessory Muscle Use Gastrointestinal/Abdominal: Soft, No Tenderness Extremity: Other (Abrasion to the left knee) Neurological/Psych: Oriented x3, Normal Speech, Normal Cognition ED Course And Treatment - CT Scan/US Head CT Other Rad Studies (CT/US): Interpreted By Me, Read By Radiologist CT/US Interpretation: IMPRESSION: No acute intracranial abnormality. Mild brain atrophy and ventricle dilatation. Mild inflammatory changes paranasal sinuses. Clinical correlation advised. Medical Decision Making Medical Decision Making: Impression: 78 year old male s/p fall, ho of etoh. oriented x 3 asking for dc. Plan: Head CT ordered for patient. Glucose POC ordered for patient. obseved in nad ambulatory steady gait in nad. Disposition - Disposition Disposition: HOME/ ROUTINE Disposition Time: 18:00 Condition: STABLE Additional Instructions: return to any er with worsening. Instructions: Preventing Falls, Alcohol Abuse and Alcoholism (DC) Forms: [employer] (Slovak) - Clinical Impression Clinical Impression: Fall - Scribe Statement The provider has reviewed the documentation as recorded by the Scribe (Lynsey Jimenez) All medical record entries made by the Scribe were at my direction and personally dictated by me. I have reviewed the chart and agree that the record accurately reflects my personal performance of the history, physical exam, medical decision making, and the department course for this patient. I have also personally directed, reviewed, and agree with the discharge instructions and disposition.
[2018-11-20 20:50] VITALS: O2SAT 99
[2018-11-20 21:37] VITALS: BP 156/78; PULSE 72; RESP 18; TEMP 98.5
--- NOTE | 2018-11-21 08:21 | CT ---
Date of service: 11/20/2018 PROCEDURE: CT HEAD WITHOUT CONTRAST. HISTORY: trauma/fall COMPARISON: None available. TECHNIQUE: Axial computed tomography images were obtained through the head/brain without intravenous contrast. Radiation dose: Total exam DLP = 940.86 mGy-cm. This CT exam was performed using one or more of the following dose reduction techniques: Automated exposure control, adjustment of the mA and/or kV according to patient size, and/or use of iterative reconstruction technique. FINDINGS: HEMORRHAGE: No intracranial hemorrhage. BRAIN: No mass effect or edema. Moderate atrophy and chronic microvascular ischemic changes. VENTRICLES: Unremarkable. No hydrocephalus. CALVARIUM: Unremarkable. PARANASAL SINUSES: Unremarkable as visualized. No significant inflammatory changes. MASTOID AIR CELLS: Unremarkable as visualized. No inflammatory changes. OTHER FINDINGS: None. IMPRESSION: No bleef..
== END 2018-11-20 22:24 | disposition home or self-care (01) ==
LOC: C.ER 16:57
DX: Z03.89 Encounter for observation for other suspected diseases and conditions ruled out (principal); W01.0XXA Fall on same level from slipping, tripping and stumbling without subsequent striking against object, initial encounter; E78.00 Pure hypercholesterolemia, unspecified; I10 Essential (primary) hypertension; E78.5 Hyperlipidemia, unspecified

== ENCOUNTER 2018-12-21 17:17 | Emergency (ER) | payer MEDICARE ==
[2018-12-21 17:17] VITALS: BMI 33.4
[2018-12-21 17:29] VITALS: TEMP 97.8
--- NOTE | 2018-12-21 19:32 | C.PDOC ---
History Of Present Illness 78 y/o male,w/PMhx of ETOH abuse and dementia, brought to ER by ambulance for ETOH intoxication. Patient states that he was drinking ETOH. Patient has been evaluated for ETOH abuse in [facility] [place] [facility]. His last visit was in 10/30/18 when he was found to have ETOH level above 200.Denies having suicidal ideation, homicidal ideation, and active physical complaints. <Micheal Ybarra - Last Filed: 12/22/18 00:51> History Per: Patient History/Exam Limitations: no limitations <Micheal Ybarra - Last Filed: 12/22/18 00:51> <Johann Flor - Last Filed: 12/22/18 05:34> Time Seen by Provider: 12/21/18 18:15 Chief Complaint (Nursing): Substance Abuse Past Medical History Reviewed: Historical Data, Nursing Documentation, Vital Signs Vital Signs: Last Vital Signs Temp 97.8 F 12/21/18 17:28 Pulse 76 12/21/18 17:28 Resp 13 12/21/18 17:28 BP 89/51 L 12/21/18 17:28 Pulse Ox 95 12/21/18 17:28 - Medical History PMH: Cardia Arrhythmia, COPD, Emphysema, HTN, Hypercholesterolemia, Sleep Apnea (HAS C-PAP DOESN'T USE) Surgical History: Coronary Stent (X2) - [facility] CORONARY ARTERIOGRAM NEC (05/15/15) LEFT HEART CARDIAC CATH (05/15/15) Family History: States: No Known Family Hx - Social History Hx Tobacco Use: No Hx Alcohol Use: Yes (Socially) Hx Substance Use: No - Immunization History Hx Tetanus Toxoid Vaccination: No Hx Influenza Vaccination: Yes Hx Pneumococcal Vaccination: Yes (2018) <Micheal Ybarra - Last Filed: 12/22/18 00:51> Vital Signs: Last Vital Signs Temp 97.8 F 12/21/18 17:28 Pulse 76 12/22/18 02:47 Resp 16 12/22/18 02:47 BP 107/65 12/22/18 02:47 Pulse Ox 95 12/22/18 02:47 - [facility] Procedures CORONARY ARTERIOGRAM NEC (05/15/15) LEFT HEART CARDIAC CATH (05/15/15) <Johann Flor - Last Filed: 12/22/18 05:34> Review Of Systems Except As Marked, All Systems Reviewed And Found Negative. Constitutional: Negative for: Fever, Chills Psych: Negative for: Suicidal ideation <Micheal Ybarra - Last Filed: 12/22/18 00:51> Physical Exam - Physical Exam Appears: No Acute Distress, Other (obese elderly male) Skin: Normal Color, Warm, Dry Head: Normacephalic, Abrasion (small healed abrasion on forehead, appears to be chronic) Eye(s): bilateral: Normal Inspection Nose: Normal Oral Mucosa: Moist Neck: Supple Chest: Symmetrical Cardiovascular: Rhythm Regular Respiratory: Normal Breath Sounds, No Rales, No Rhonchi, No Wheezing Gastrointestinal/Abdominal: Normal Exam, Soft, No Tenderness, No Guarding, No Rebound Neurological/Psych: Other (pt is answering questions,but he is not making sense) <Micheal Ybarra - Last Filed: 12/22/18 00:51> ED Course And Treatment O2 Sat by Pulse Oximetry: 95 (RA) Pulse Ox Interpretation: Normal - CT Scan/US CT-Head Other Rad Studies (CT/US): Read By Radiologist, Radiology Report Reviewed CT/US Interpretation: EXAM: CT Head without Intravenous Contrast. CLINICAL HI STORY: Fall, ataxic, ? SDH. TECHNIQUE: Axial computed tomography images of the head/brain without intravenous contrast. 0.00 mGy-cm. COMPARISON: None provided. FINDINGS: BRAIN. No acute intraparenchymal hemorrhage. No mass lesion. No CT evidence for acute territorial infarct. No midline shift or extra- axial collections. VENTRICLES: No hydrocephalus. ORBITS: The orbits are unremarkable. SINUSES AND MASTOIDS: The paranasal sinuses and mastoid air cells are clear. BONES: No fracture. SOFT TISSUES: Unremarkable. IMPRESSION: No acute intracranial abnormality. Reevaluation Time: 00:51 Reassessment Condition: Improved (clinically sober, but cannot be d/c to street and no safe ride home. Hold until AM) <Micheal Ybarra Last Filed: 12/22/18 00:51> Pulse Ox Interpretation: Normal Reassessment Condition: Improved <Johann Flor - Last Filed: 12/22/18 05:34> Medical Decision Making Medical Decision Making: Plan: --CT-Head Patient is now clinically sober. Patients was called so that she can come to pick him up, and she refuses. There have been many prior instances where patients has refused to pick him up. I declined to discharge a demented patient at 10pm. Will keep the patient in the ED until he has sobered up. dementa/etoh abuse 0100 signed over to overnight <Micheal Ybarra - Last Filed: 12/22/18 00:51> Disposition - Disposition Disposition Time: 01:00 <Micheal Ybarra - Last Filed: 12/22/18 00:51> Counseled Patient/Family Regarding: Studies Performed, Diagnosis, Need For Followup <Johann Flor - Last Filed: 12/22/18 05:34> - Disposition Referrals: [facility] [Outside] Condition: FAIR Instructions: Dementia (Including Alzheimer Disease) Forms: [facility] (Latvian) - Clinical Impression Clinical Impression: Alcohol intoxication, Dementia - Scribe Statement The provider has reviewed the documentation as recorded by the Scribe Jessica Goss Provider Attestation: All medical record entries made by the Scribe were at my direction and personally dictated by me. I have reviewed the chart and agree that the record accurately reflects my personal performance of the history, physical exam, medical decision making, and the department course for this patient. I have also personally directed, reviewed, and agree with the discharge instructions and disposition. <Micheal Ybarra - Last Filed: 12/22/18 00:51> Physician Patient Turnover Patient Signed Over To: Johann Flor Handoff Comments: dispo home in AM <Micheal Ybarra - Last Filed: 12/22/18 00:51>
[2018-12-21] MEDS ORDERED: Iodixanol 320 MG/ML 100 ML BOTTLE IV ONE (22:04)
[2018-12-22 06:37] VITALS: RESP 18
--- NOTE | 2018-12-22 09:05 | CT ---
Date of service: 12/21/2018 PROCEDURE: CT HEAD WITHOUT CONTRAST. HISTORY: Fall. Ataxia. Subdural hemorrhage. COMPARISON: 11/20/2018 TECHNIQUE: Axial computed tomography images were obtained through the head/brain without intravenous contrast. Radiation dose: Total exam DLP = 949.09 mGy-cm. This CT exam was performed using one or more of the following dose reduction techniques: Automated exposure control, adjustment of the mA and/or kV according to patient size, and/or use of iterative reconstruction technique. FINDINGS: HEMORRHAGE: No intracranial hemorrhage. BRAIN: No mass effect or edema. Scattered focal lucencies in the subcortical and periventricular white matter suggestive for chronic microvascular ischemic change. Diffuse generalized parenchymal atrophy. Additional atrophic changes in the anterior bilateral temporal lobes. Punctate lacunar infarcts in the right caudate head and right basal ganglia. VENTRICLES: Unremarkable. No hydrocephalus. CALVARIUM: Unremarkable. PARANASAL SINUSES: Unremarkable as visualized. No significant inflammatory changes. MASTOID AIR CELLS: Unremarkable as visualized. No inflammatory changes. OTHER FINDINGS: None. IMPRESSION: No acute intracranial abnormality. Chronic microvascular ischemic change. Diffuse generalized parenchymal atrophy including bilateral anterior temporal lobe atrophy. If symptoms persists, consider correlation with MRI. A preliminary report was generated at 7:33 p.m. on 12/21/[address] Hussain Ferro from [place].
[2018-12-22 10:00] VITALS: BP 165/74; PULSE 83; O2SAT 97
== END 2018-12-22 11:07 | disposition home or self-care (01) ==
LOC: C.ER 17:17
DX: F10.129 Alcohol abuse with intoxication, unspecified (principal); F03.90 Unspecified dementia, unspecified severity, without behavioral disturbance, psychotic disturbance, mood disturbance, and anxiety; E78.00 Pure hypercholesterolemia, unspecified; I10 Essential (primary) hypertension